=== PATIENT | female | born 1935 | race Caucasian/White ===

== ENCOUNTER 2023-11-08 11:07 | Emergency (ER) | payer OTHER, SELFPAY ==
[2023-11-08 11:11] VITALS: BP 178/91
--- NOTE | 2023-11-08 11:33 | ED.GENMED ---
History of Present Illness
General
Chief Complaint: Abdominal Symptoms
Source: patient
Exam Limitations: none
Time Seen by Provider: 11/08/23 11:15
Travel History
Have you had any contact with someone who has COVID-19?: No
Do you have any symptoms of coronavirus? Fever > 100 degrees, chills, cough, shortness of breath, sore throat, loss of taste or smell, muscle aches, or headache?: No
History of Present Illness
History of Present Illness:
88-year-old female with history of hypertension presents with intermittent issues of loose stool diarrhea and lower abdominal pain. Patient is accompanied by her daughter who provides majority of the history. She states the patient has had
intermittent dark stool and diarrhea over the past several months. She was recently diagnosed with a UTI and started on nitrofurantoin 2 days ago. She notes ongoing urinary frequency. No fevers. No chest pain or breath. There has been no
vomiting. No other complaints at this time
Past History
Past History
ED Past Medical History: CAD, HTN, Hypercholesterolemia and Other (Previous [place], hysterectomy, appendectomy, hypertension)
ED Past Surgical History: Gynecological
Social History
Tobacco: Non-smoker
Alcohol: Occasional
Family History
Family History: CAD
Phy Exam
Physical Exam
Physical Exam:
General: Well-appearing female no acute respiratory distress
HEENT: Normocephalic atraumatic
Heart: Regular rate and rhythm no murmur
Lungs: Clear to auscultation bilaterally no wheeze
Abdomen soft tender to the epigastric region no guarding rebound normal bowel sounds nondistended also tender to the lower abdomen bilaterally
Extremities: No cyanosis or edema
Skin: Warm no rash
Course
Orders/Labs/Results
Orders:
Orders
11/08/23 11:32
CT Abd/pelvis W Iv Cont Urgent
Comment:
Reason For Exam: abdominal pain
11/08/23 11:40
Complete Blood Count/With Diff Urgent
Comprehensive Metabolic Panel Urgent
Lipase Urgent
Urinalysis Reflex To Culture Urgent
Date Specimen was Collected: 11/08/23
Time Specimen was Collected: 11:37
Urine Microscopic Reflex Cult Urgent
Urine Culture Urgent
TRISHA Source: U
Specimen Description:
Date Specimen was Collected: 11/08/23
Time Specimen was Collected: 11:37
11/08/23 15:22
US Abdomen Complete/Upper Urgent
Comment:
Reason For Exam: RUQ pain
11/08/23 15:31
Calprotectin, Fecal [S] Urgent
Fat, Fecal Qualitative [S] Urgent
STOOL [C difficile Antigen & Toxins] Urgent
TRISHA Source: Feces/Stool
Specimen Description:
Stool Culture Urgent
TRISHA Source: Feces/Stool
Specimen Description:
Stool For WBC Urgent
TRISHA Source: Feces/Stool
Specimen Description:
Stool for Occult Blood Routine
Abnormal Lab Results
11/08/23
11:40
RBC 4.07 L 10^6/uL
(4.20-5.40)
MCH 31.9 H pg
(27.0-31.0)
Absolute Neuts (auto) 6.9 H 10^3/uL
(1.4-6.5)
Carbon Dioxide 20 L mmol/L
(22-30)
BUN 20 H mg/dl
(7-17)
Glucose 103 H mg/dl
(70-99)
Alkaline Phosphatase 136 H U/L
(38-126)
Leukocyte Esterase Rfl 1+ A
(Negative)
Urine WBC (Reflex) 40-50 A /HPF
(0-5)
Urine Bacteria (Reflex) Few A
(Negative)
11/08/23 11:40
11/08/23 11:40
Vital Signs
Initial and Last Documented VS:
Initial Vital Signs
Temp Pulse Resp BP Pulse Ox
97.6 F 97 16 178/91 100
11/08/23 11:11 11/08/23 11:11 11/08/23 11:11 11/08/23 11:11 11/08/23 11:11
Last Documented Vital Signs
Temp Pulse Resp BP Pulse Ox
98.1 F 82 18 160/75 98
11/08/23 16:23 11/08/23 16:23 11/08/23 16:23 11/08/23 16:23 11/08/23 16:23
MDM/Problems Addressed
Differential Diagnosis Includes:
Abdominal pain with dark stool and loose stool. Question possible GI bleeding versus viral illness. She also has lower abdominal pain with urinary symptoms. Consider ongoing urinary tract infection. Urinalysis pending will check labs. Given the
diffuse tenderness on exam will do CT scan.
*Critical Care Note
Total Time (30-74mins, 75-104mins- exclusive of procedures): Not Applicable
Update Note
Update Note:
Rectal exam performed with female ems coordinator in the room. Small external hemorrhoids nonthrombosed. Little stool in the rectum. Heme test was negative however they may be due to small sample size. Patient did have a pad in her underwear that had
dried stool that was black in color.
Labs reviewed without significant finding. Initial CT shows no acute finding. Reevaluated patient and patient's GI doctor was on the phone who I spoke with. They recommended stool studies and an ultrasound given the epigastric pain. Ultrasound
was ordered which is negative for acute finding. Unfortunately patient unable to provide stool specimen here. Patient has ongoing urinary symptoms. Will change her antibiotic from Macrobid to Omnicef twice a day. She will be advised to follow-up
with her GI team. Stable for discharge.
ED Attending Note
-
Portions of this chart may have been created with voice recognition software.� Occasional wrong word or��sound alike� substitutions may have occurred due to the inherent limitations of voice recognition software.
Discharge Plan
Departure
Patient Disposition: Home (Routine Discharge)
Date of Disposition: 11/08/23
Time of Disposition: 17:27
Patient with high blood pressure during this ER visit?: No
Discharge Problem:
Acute UTI
Instructions: Urinary Tract Infection, Adult (DC), Abdominal Pain
Prescriptions:
New
cefdinir 300 mg capsule
300 mg PO BID Qty: 14 0RF
No Action
omeprazole 40 MG capsule,delayed release(DR/EC)
40 mg PO DAILY
amlodipine 10 MG tablet
10 mg PO DAILY
oxybutynin chloride 10 MG tablet extended release 24hr
15 mg PO DAILY
rosuvastatin 10 MG tablet
10 mg PO QPM
lisinopril 20 MG tablet
20 mg PO DAILY Qty: 1
acetaminophen [Tylenol] 325 mg Tablet
650 mg PO Q4H PRN (Reason: pain)
Referrals:
Saji Ahumada, DO [Family Provider] -
Activity Restrictions/Additional Instructions:
Drink plenty fluids. Use antibiotic as directed. Stop the nitrofurantoin and start the Omnicef. This was called into your pharmacy. Please follow-up with your GI and family doctor.
Interventions
Interventions:
*Risk Screen - Suicide Last Done: 11/08/23 11:11
*General Assessment Last Done: 11/08/23 11:11
*Neglect/Abuse Screening Last Done: 11/08/23 11:11
AG-Cmsbfk-Qxgfegiloi Assessment Last Done: 11/08/23 16:16
[2023-11-08 11:53] LABS: Urine Albumin Negative (Neg - Trace); Urine Bilirubin Negative (Negative); Urine Character Clear (Clear); Urine Color Yellow; Urine Glucose Negative (Negative); Urine Ketone Negative (Negative); Urine Leukocyte 1+ (Negative); Urine Nitrite Negative (Negative); Urine Occult Blood Negative (Negative); Urine Urobilinogen Negative (Neg - 1+)
[2023-11-08 12:22] LABS: Urine Amorphous Seen; Urine Red Blood Cell 0-2 /HPF (0-2); Urine White Cell 40-50 /HPF (0-5)
[2023-11-08 12:23] LABS: Urine Bacteria Few (Negative)
[2023-11-08 12:42] LABS: % Basophils 0.3 % (0-2); % Eosinophils 0.4 % (0-6); % Immature Granulocytes 0.1 % (0-0.5); % Lymphocytes 24.1 % (20.5-51.1); % Neutrophils 70.1 % (42.2-75.2); Absolute Lymphocytes 2.4 10^3/uL (1.2-3.4); Absolute Monocytes 0.5 10^3/uL (0.1-0.6); Absolute Neutrophils 6.9 10^3/uL (1.4-6.5); Hematocrit 37.2 % (37.0-47.0); Mean Corp Hgb Conc. 34.9 g/dL (33.0-37.0); Mean Corpuscular Hgb 31.9 pg (27.0-31.0); Mean Corpuscular Volume 91.4 fL (81.0-99.0); Mean Platelet Volume 9.9 fL (7.4-10.4); Nucleated Red Blood Cells % 0 %; Platelet Count 187 10^3/uL (130-400); Red Blood Cell Count 4.07 10^6/uL (4.20-5.40); Red Cell Dist. Width 13.4 % (11.5-14.5); White Blood Cell Count 9.9 10^3/uL (4.8-10.8)
[2023-11-08 12:47] LABS: ALT (SGPT) 16 U/L (0-35); AST (SGOT) 30 U/L (14-36); Alkaline Phosphatase 136 U/L (38-126); Blood Urea Nitrogen 20 mg/dl (7-17); Calcium 9.6 mg/dl (8.4-10.2); Carbon Dioxide 20 mmol/L (22-30); Chloride 107 mmol/L (98-107); Glucose 103 mg/dl (70-99); Lipase 79 U/L (23-300); Potassium 4.6 mmol/L (3.5-5.1); Sodium 137 mmol/L (135-145); Total Bilirubin 0.6 mg/dl (0.2-1.3); Total Protein 7.5 g/dl (6.3-8.2); eGFR > 60.00
[2023-11-08 16:23] VITALS: BP 160/75
== END 2023-11-08 17:40 | disposition home or self-care (01) ==
LOC: EMR 11:07
PROVIDERS: Physician Assistant; EMERGENCY PHYSICIAN Emergency Medicine; FAMILY PHYSICIAN Family Medicine
DX: N39.0 Urinary tract infection, site not specified (principal); K64.4 Residual hemorrhoidal skin tags
CPT/HCPCS: 99285; 74177; 76700; 80053; 81003; 81015; 83690; 85025; 87086; Q9967

== ENCOUNTER 2024-01-07 02:29 | Inpatient (IN) | payer OTHER, SELFPAY ==
[2024-01-06 20:08] VITALS: BMI 24.1
[2024-01-06 20:09] VITALS: BP 186/100
[2024-01-06 20:54] LABS: Hematocrit 30.8 % (37.0-47.0); Hemoglobin 11.3 g/dL (12.0-16.0); Mean Corp Hgb Conc. 36.7 g/dL (33.0-37.0); Mean Corpuscular Hgb 30.6 pg (27.0-31.0); Mean Corpuscular Volume 83.5 fL (81.0-99.0); Mean Platelet Volume 9.6 fL (7.4-10.4); Platelet Count 217 10^3/uL (130-400); Red Blood Cell Count 3.69 10^6/uL (4.20-5.40); Red Cell Dist. Width 12.5 % (11.5-14.5); White Blood Cell Count 15.5 10^3/uL (4.8-10.8)
[2024-01-06 20:59] LABS: ALT (SGPT) 22 U/L (0-35); AST (SGOT) 43 U/L (14-36); Albumin 3.5 g/dl (3.5-5.0); Alkaline Phosphatase 162 U/L (38-126); Blood Urea Nitrogen 18 mg/dl (7-17); Calcium 9.2 mg/dl (8.4-10.2); Carbon Dioxide 18 mmol/L (22-30); Chloride 99 mmol/L (98-107); Glucose 139 mg/dl (70-99); Potassium 3.4 mmol/L (3.5-5.1); Sodium 132 mmol/L (135-145); Total Bilirubin 0.8 mg/dl (0.2-1.3); eGFR > 60.00
[2024-01-06 21:24] LABS: Absolute Neutrophils -Man Diff 13.1 10^3/uL (1.4-6.5); Atypical Lymphocytes 7 %; Band Neutrophils 0 % (0-3); Lymphocytes 3 % (20-51); Monocytes 5 % (2-9); Platelets Checked Yes; Segmented Neutrophils 85 % (42-75)
[2024-01-06 21:25] LABS: Normal RBC Morphology No; Ovalocytes 1+; Total Cells Counted 100
[2024-01-06] MEDS: TYLENOL 650 MG PO (23:29)
[2024-01-06 23:34] VITALS: BP 171/101
--- NOTE | 2024-01-06 23:36 | ED.GENMED ---
History of Present Illness
General
Chief Complaint: Cough
Source: patient
Exam Limitations: none
Time Seen by Provider: 01/06/24 23:19
Nursing documentation reviewed up to this point in time: agreed with
Travel History
Have you had any contact with someone who has COVID-19?: No
Do you have any symptoms of coronavirus? Fever > 100 degrees, chills, cough, shortness of breath, sore throat, loss of taste or smell, muscle aches, or headache?: No
History of Present Illness
History of Present Illness:
88-year-old female hypertension history non-smoker lives alone presents with cough fatigue decreased p.o. intake fever here not eating much due to sore throat to get a flu and a COVID shot
Past History
Past History
ED Past Medical History: CAD, HTN, Hypercholesterolemia and Other (Previous [place], hysterectomy, appendectomy, hypertension)
ED Past Surgical History: Gynecological
Social History
Tobacco: Non-smoker
Alcohol: None
Drug: None
Personal:
Living: alone
Employment: Retired
Family History
Family History: CAD
Review of Systems
Review of Systems
All Other Systems: Not applicable
Constitutional: Reports fever and fatigue
EENT: Reports sore throat
Respiratory: Reports cough and trouble breathing
Cardiac: Reports no symptoms
ABD/GI: Denies abdominal pain, nausea or vomiting
: Reports no symptoms
Musculoskeletal: Reports no symptoms
Skin: Reports no symptoms
Neurological: Reports weakness
Phy Exam
Physical Exam
Physical Exam:
Physical Exam
General: Elderly female coughing
Neck: Red throat
Heart: Tachycardic
Lungs: Rhonchi bilateral
Abdomen: Not tender
Neuro: alert and oriented. no focal neurological deficits
Skin: no rash
Psychiatric: well kept. interactive and cooperative
Extremities: no edema. no calf tenderness.
Course
Orders/Labs/Results
Orders:
Orders
01/06/24 20:31
Electrocardiogram (*1) Urgent
Reason for Study: Shortness of Breath
EKG- Treatment ONCE
01/06/24 20:39
CMP [Comprehensive Metabolic Panel] Urgent
Complete Blood Count/With Diff Urgent
Manual Differential Urgent
01/06/24 23:20
Acetaminophen [Tylenol] 650 mg PO NOW STA
01/06/24 23:32
0.9% Sodium Chloride 1000 ml [Nss] 1,000 ml IV BOLUS
Dexamethasone Sod Phosphate [Decadron] 10 mg IV NOW STA
Ipratropium/Albuterol Sulfate [Duoneb] 3 ml INH R NOW STA
01/06/24 23:39
COVID-19 Antigen Urgent
Source: Nasal Swab
Influenza A+B Rapid Molecular Urgent
TRISHA Source: Nasal Swab
Specimen Description:
01/07/24 00:00
CR Chest - 2 Views Urgent
Reason For Exam: SOB/HACKING COUGH
01/07/24 00:28
CefTRIAXone [Rocephin] 1,000 mg IV NOW STA
HydrALAZINE [Apresoline] 5 mg IV NOW STA
01/07/24 00:50
Benzonatate [Tessalon Perles] 200 mg PO NOW STA
Abnormal Lab Results
01/06/24
20:39
WBC 15.5 H 10^3/uL
(4.8-10.8)
RBC 3.69 L 10^6/uL
(4.20-5.40)
Hgb 11.3 L g/dL
(12.0-16.0)
Hct 30.8 L %
(37.0-47.0)
Abs Neuts (Manual) 13.1 H 10^3/uL
(1.4-6.5)
Segmented Neutrophils 85 H %
(42-75)
Lymphocytes (Manual) 3 L %
(20-51)
Sodium 132 L mmol/L
(135-145)
Potassium 3.4 L mmol/L
(3.5-5.1)
Carbon Dioxide 18 L mmol/L
(22-30)
BUN 18 H mg/dl
(7-17)
Glucose 139 H mg/dl
(70-99)
AST 43 H U/L
(14-36)
Alkaline Phosphatase 162 H U/L
(38-126)
Total Protein 6.0 L g/dl
(6.3-8.2)
01/06/24 20:39
01/06/24 20:39
Vital Signs
Initial and Last Documented VS:
Initial Vital Signs
Temp Pulse Resp BP Pulse Ox
101.1 F H 116 26 186/100 95
01/06/24 20:09 01/06/24 20:09 01/06/24 20:09 01/06/24 20:09 01/06/24 20:09
Last Documented Vital Signs
Temp Pulse Resp BP Pulse Ox
98.5 F 106 25 171/101 95
01/06/24 23:32 01/06/24 23:45 01/06/24 23:45 01/06/24 23:34 01/06/24 23:34
MDM/Problems Addressed
Differential Diagnosis Includes:
Influenza COVID pneumonia bronchitis
MDM/Problems Addressed:
Cough fever
Chronic conditions affecting care: HTN and CAD
Acute Exacerbation and/or Progression of Chronic Illness: HTN and CAD
*Radiology
Radiology exam reviewed: preliminary read by ED provider
*Pulse Oximetry
Patient hypoxic: no
*EKG
Interpretation: abnormal
Comparison EKG: no comparison EKG present
Heart Rate: 112
Rate: tachycardiac
Rhythm: sinus
Ischemia: non-specific ST changes
*Carpet Technician Interpretation
Rate: tachycardiac
Interpretation: abnormal
Heart Rate: 112
Rhythm: sinus
*Critical Care Note
Total Time (30-74mins, 75-104mins- exclusive of procedures): Not Applicable
Data Reviewed
Review of Other/Old Records Reveals: Labs
Source: patient
Update Note
Update Note:
12:30 AM chest x-ray noted looks like pneumonia formal report pending will start antibiotics blood pressure is creeping up we will give her some hydralazine see how she is responding to treatment may require inpatient management
12:50 AM patient still coughing , oxygen level dips down in the low 90s placed on oxygen, will admit
ED Attending Note
-
Portions of this chart may have been created with voice recognition software.� Occasional wrong word or��sound alike� substitutions may have occurred due to the inherent limitations of voice recognition software.
Discharge Plan
Departure
Patient Disposition: Admit
Date of Disposition: 01/07/24
Time of Disposition: 00:51
Admit to: Med/Surg
Presentation/result/management discussed w/ accepting MD/DO: Hospitalist
Patient with high blood pressure during this ER visit?: Yes
Condition: Fair
Covid-19: Negative COVID-19
Discharge Problem:
Pneumonia
Prescriptions:
No Action
omeprazole 40 MG capsule,delayed release(DR/EC)
40 mg PO DAILY
amlodipine 10 MG tablet
10 mg PO DAILY
oxybutynin chloride 10 MG tablet extended release 24hr
15 mg PO DAILY
rosuvastatin 10 MG tablet
10 mg PO QPM
lisinopril 20 MG tablet
20 mg PO DAILY Qty: 1
acetaminophen [Tylenol] 325 mg Tablet
650 mg PO Q4H PRN (Reason: pain)
cefdinir 300 mg capsule
300 mg PO BID Qty: 14 0RF
Referrals:
Saji Ahumada DO [Family Provider] -
Interventions
Interventions:
*Risk Screen - Suicide Last Done: 01/06/24 20:09
*Neglect/Abuse Screening Last Done: 01/06/24 20:09
Discharge Date and Time
Print Language: MALTESE
[2024-01-06] MEDS: NSS 1000 IV (23:37)
[2024-01-06] MEDS: DECADRON 10 MG IV (23:37)
[2024-01-06] MEDS: DUONEB 3 ML INH (23:37)
[2024-01-06 23:56] VITALS: BP 193/75
[2024-01-07] VITALS (11 sets, daily range): BP systolic 144–227; BP diastolic 50–190; PULSE 82–110; O2SAT 97; BMI 23.8
[2024-01-07 00:07] LABS: COVID-19 Antigen Negative (Negative)
[2024-01-07] MEDS: TESSALON PERLES 200 MG PO (00:57)
[2024-01-07] MEDS: APRESOLINE 5 MG IV (00:57)
[2024-01-07] MEDS: ROCEPHIN 1000 MG IV (00:57)
--- NOTE | 2024-01-07 02:19 | HPS.HSE ---
Family Physician
-
Family Physician: Saji Ahumada DO
Chief Complaint
-
Cough / Fatigue
History of Present Illness
Patient is an 88y F with PMH significant for ASCVD, hypertension and GERD who presents to ED complaining of cough, fatigue and poor appetite for one week. Her symptoms started Saturday one week ago and have persisted since that time. She reports
associated headache and sore throat. Cough is minimally productive. No bloody sputum. No fevers / chills. Patient denies any known sick contacts. She denies any associated GI symptoms.
Medical History
Past Medical History
Past Medical History: Reports Other
Additional Past Medical History:
ASCVD
Hypertension
Takotsubo's Cardiomyopathy
GERD
OAB
Lumbar DDD
Past Surgical History: Reports Other
Additional Past Surgical History:
Cervical Fusion
Lumbar Laminectomy
DIANA
Appendectomy
Finger Surgery
Social History
Tobacco: Non-smoker
Alcohol: None
Drug: None
Living: Alone
Family History
Family History: Not pertinent
Allergies / Home Medications
Allergies reflects when Allergies were last updated in [facility].
Home Medications with original date entered in [facility]
Allergy/Medication List:
Allergies
Allergy/AdvReac Type Severity Reaction Status Date / Time
No Known Allergies Allergy Verified 01/06/24 20:30
Home Medications
amlodipine 10 mg tablet 10 mg PO DAILY 10/17/16
omeprazole 40 mg capsule,delayed release 40 mg PO DAILY 10/17/16
rosuvastatin 10 mg tablet 10 mg PO QPM 12/07/18
lisinopril 20 mg tablet 20 mg PO DAILY ##1 12/10/18
acetaminophen 325 mg tablet (Tylenol) 650 mg PO Q4H PRN pain 02/28/23
aspirin 81 mg chewable tablet 81 mg PO DAILY 01/07/24
vibegron 75 mg tablet (Gemtesa) 75 mg PO DAILY 01/07/24
Review of Systems
-
History Source: Patient
A 12 point ROS was completed and negative except as noted: Yes
Constitutional: Reports Fatigue; Denies Fever or Chills
EENT: Reports Sore Throat
Respiratory: Reports Cough; Denies Trouble Breathing
Cardiac: Denies Chest Pain, Diaphoresis or Palpitations
Abdomen/GI: Denies Abdominal Pain, Nausea, Vomiting or Diarrhea
: Reports Frequency; Denies Dysuria
Musculoskeletal: Denies Joint Pain or Edema
Neurological: Reports Headache; Denies Dizzy
Psych: Denies Depression or Anxiety
Physical Exam
Vital Signs
Vital Signs
Temp Pulse Resp BP Pulse Ox
98.5 F 106 25 171/101 95
01/06/24 23:32 01/06/24 23:45 01/06/24 23:45 01/06/24 23:34 01/06/24 23:34
Physical Exam
General: Other (88y F in no acute distress.)
HEENT: Moist mucous membranes and PERRLA
Respiratory: Other (Rales over R lower lung hendricks. No wheezes.)
Cardiac: S1/S2, Regular Rhythm and Murmur (II/ TASIA)
GI: Soft, Non Tender, Non Distended and Normal Bowel Sounds
Musculoskeletal: No Clubbing, No Cyanosis and No Edema
Neuro: AO x 3
Laboratory Results
-
01/06/24 20:39
01/06/24 20:39
Laboratory Results
Total Bilirubin 0.8 mg/dl (0.2-1.3) 01/06/24 20:39
AST 43 U/L (14-36) H 01/06/24 20:39
ALT 22 U/L (0-35) 01/06/24 20:39
Alkaline Phosphatase 162 U/L (38-126) H 01/06/24 20:39
Impression/Plan
-
A/P: Patient is an 88y F with PMH significant for ASCVD and hypertension who presents to ED complaininig of cough, sore throat and fatigue x 1 week.
RLL Pneumonia
Sepsis secondary to the above
- Admit for further evaluation and treatment.
- Patient presents with cough, R base infiltrate on CXR and fever, leukocytosis and tachycardia.
- Abx with IV ceftriaxone and PO doxy.
- Supportive care including mucolytics, nebs, etc.
- Follow for clinical improvement.
- COVID / Influenza negative in the ED.
ASCVD
Takotsubo's Cardiomyopathy
- Stable. No chest pain, palpitations, edema, etc.
- Continue current CV med regimen and follow for any new complaints.
Benign Hypertension
- BP is uncontrolled in the ED.
- Continue usual outpatient meds.
- Hydralazine PRN for higher BPs
- Adjust regimen as needed for improved control.
GERD
- Stable. Continue daily PPI.
DVT prophylaxis: Lovenox
Code Status: DNR
[2024-01-07] MEDS: KLOR-CON 20 MEQ PO (03:45)
--- NOTE | 2024-01-07 05:32 | PTCARENOTE ---
Receive pt from ER. Pt alert oriented X3, in no distress. Pt assist X1 to her bed. Pt states that her legs feel weak. Pt oriented to the room, call within reach. PN=286/80, HR=98, T=97.9, SpO2=97% on RA. Pt can be forgetful at times. Bed alarm in
place for pt's safety. Will monitor the pt.
[2024-01-07 06:34] LABS: Hematocrit 29.6 % (37.0-47.0); Hemoglobin 10.6 g/dL (12.0-16.0); Mean Corp Hgb Conc. 35.8 g/dL (33.0-37.0); Mean Corpuscular Hgb 30.8 pg (27.0-31.0); Mean Platelet Volume 11.4 fL (7.4-10.4); Platelet Count 163 10^3/uL (130-400); Red Blood Cell Count 3.44 10^6/uL (4.20-5.40); Red Cell Dist. Width 12.6 % (11.5-14.5)
[2024-01-07 09:18] LABS: Blood Urea Nitrogen 16 mg/dl (7-17); Calcium 9.3 mg/dl (8.4-10.2); Carbon Dioxide 20 mmol/L (22-30); Chloride 102 mmol/L (98-107); Estimated Creatinine Clearance 50 ml/min; Glucose 176 mg/dl (70-99); Potassium 3.6 mmol/L (3.5-5.1); Sodium 134 mmol/L (135-145); eGFR > 60.00
[2024-01-07] MEDS: LOW STRENGTH ASPIRIN 81 MG PO (09:28)
[2024-01-07] MEDS: ZESTRIL 20 MG PO (09:28)
[2024-01-07] MEDS: FLUSH (NSS) 1 FLUSH IV (09:28)
[2024-01-07] MEDS: MUCINEX 600 MG PO ×2 (09:28→20:10)
[2024-01-07] MEDS: NORVASC 10 MG PO (09:28)
[2024-01-07] MEDS: VIBRAMYCIN 100 MG PO ×2 (09:28→20:11)
[2024-01-07] MEDS: PROTONIX 40 MG PO (09:28)
--- NOTE | 2024-01-07 10:32 | CM ---
CM met with Lexi and her son this morning. Assessment complete.
Lexi lives alone in a 2 story home. Her bedroom is on the second level, however if needed she would be able to stay on the first floor.
Lexi walks to [employer] most days and likes to be active.
Family lives locally and is very supportive; daughter and 3 sons visit almost daily.
Anticipate discharge to home with no needs besides continued family support.
PCP: Saji Ahumada; [facility]
Pharmacy: [facility] ([facility]
--- NOTE | 2024-01-07 12:55 | W.PN.HOSP.TC ---
Today's Communication/Plan
-
Monitor vital signs see plan
Continue with antibiotics
Blood cultures never drawn on admission, ordered this morning
Continue with amlodipine, lisinopril
PT/OT
Nonbillable note
Assessment / Plan
Assessment / Plan
General: Other (88y F in no acute distress.)
HEENT: Moist mucous membranes and PERRLA
Respiratory: Other (Rales over R lower lung hendricks. No wheezes.)
Cardiac: S1/S2, Regular Rhythm and Murmur (II/ TASIA)
GI: Soft, Non Tender, Non Distended and Normal Bowel Sounds
Musculoskeletal: No Clubbing, No Cyanosis and No Edema
Neuro: AO x 3
Bilateral pneumonia
Sepsis secondary to the above
No blood cultures were drawn on admission, blood culture drawn 01/06, monitor
- Patient presents with cough, R base infiltrate on CXR and fever, leukocytosis and tachycardia.
- Abx with IV ceftriaxone and PO doxy.
- Supportive care including mucolytics, nebs, etc.
- Follow for clinical improvement.
- COVID / Influenza negative in the ED.
ASCVD
Takotsubo's Cardiomyopathy
- Stable. No chest pain, palpitations, edema, etc.
- Continue current CV med regimen and follow for any new complaints
Mild hyponatremia
monitor
Benign Hypertension
cw amlodipine,lisinopril
- Hydralazine PRN for higher BPs
- Adjust regimen as needed for improved control.
GERD
- Stable. Continue daily PPI.
DVT prophylaxis: Lovenox
Code Status: DNR
Anticipated Discharge: > 48 hours
Subjective/Interval History
-
Date of Service: January 07, 2024
denies pain
Objective Data
-
Labs:
Laboratory Results
01/07/24 01/07/24
05: 08:01
WBC 15.0 H
Hgb 10.6 L
Hct 29.6 L
Plt Count 163 D
Sodium Cancelled 134 L
Potassium Cancelled 3.6
Chloride Cancelled 102
Carbon Dioxide Cancelled 20 L
BUN Cancelled 16
Creatinine Cancelled 0.6
Glucose Cancelled 176 H
Calcium Cancelled 9.3
Vital Signs:
Vital Signs
Temp Pulse Resp BP Pulse Ox
97.8 F 82 16 170/76 97
01/07/24 07:55 01/07/24 09:28 01/07/24 08:19 01/07/24 09:28 01/07/24 09:24
--- NOTE | 2024-01-07 16:29 | PTCARENOTE ---
Pt AAO x3, forgetful at times. JORGENSEN well, OOB to BR with assist x1; sl unsteady w/OOB activity, denies weakness/dizziness; stated 'I live by myself'. VSS. On room air- pulse ox 99%, no c/o SOB. Abd soft, rounded,jona PO well. Voiding in BR
without difficulty. Resting in chair at present, no c/o; family members at bedside. Will continue to monitor.
[2024-01-07] MEDS: CRESTOR 10 MG PO (18:25)
[2024-01-07] MEDS: LOVENOX 40 MG SC (18:25)
[2024-01-08] MEDS: STERILE WATER FOR INJECTION 10 ML IV ×2 (01:00→23:37)
[2024-01-08] MEDS: ROCEPHIN 1000 MG IV ×2 (01:01→23:37)
[2024-01-08] MEDS: TESSALON PERLES 100 MG PO ×2 (02:23→12:00)
[2024-01-08 04:24] VITALS: BP 157/97
--- NOTE | 2024-01-08 04:50 | PTCARENOTE ---
patient is having confused conversation, but oriented to person, place and time. Evan notified, awaiting POC. VSS . Patient placed on medsitter d/t attempting to climb out of bed to look for jewelry.
--- NOTE | 2024-01-08 05:09 | W.PN.UPDATE ---
Update Note
Progress Note Update
Patient with no known diagnosed history of Dementia, Per nursing patient seem more confused this AM, Reports per her daughter, patient has hx of forgetful and needs redirection. Will UA to see any growth. stable VS.
--- NOTE | 2024-01-08 06:20 | PTCARENOTE ---
urine cx ordered per Evan
[2024-01-08 07:35] LABS: % Basophils 0.3 % (0-2); % Immature Granulocytes 1.1 % (0-0.5); % Lymphocytes 18.8 % (20.5-51.1); % Monocytes 3.9 % (1.7-9.3); % Neutrophils 75.9 % (42.2-75.2); Absolute Basophils 0.1 10^3/uL (0-0.2); Absolute Immature Granulocytes 0.3 10^3/uL (0-0.05); Absolute Lymphocytes 4.8 10^3/uL (1.2-3.4); Absolute Neutrophils 19.4 10^3/uL (1.4-6.5); Hematocrit 32.4 % (37.0-47.0); Hemoglobin 11.6 g/dL (12.0-16.0); Mean Corp Hgb Conc. 35.8 g/dL (33.0-37.0); Mean Corpuscular Hgb 30.4 pg (27.0-31.0); Mean Platelet Volume 9.4 fL (7.4-10.4); Nucleated Red Blood Cells % 0 %; Platelet Count 289 10^3/uL (130-400); Red Blood Cell Count 3.81 10^6/uL (4.20-5.40); Red Cell Dist. Width 12.9 % (11.5-14.5); White Blood Cell Count 25.5 10^3/uL (4.8-10.8)
[2024-01-08 07:55] LABS: ALT (SGPT) 36 U/L (0-35); AST (SGOT) 64 U/L (14-36); Albumin 3.5 g/dl (3.5-5.0); Alkaline Phosphatase 169 U/L (38-126); Blood Urea Nitrogen 19 mg/dl (7-17); Calcium 9.8 mg/dl (8.4-10.2); Carbon Dioxide 19 mmol/L (22-30); Chloride 103 mmol/L (98-107); Estimated Creatinine Clearance 50 ml/min; Glucose 133 mg/dl (70-99); Potassium 3.6 mmol/L (3.5-5.1); Sodium 137 mmol/L (135-145); Total Bilirubin 0.5 mg/dl (0.2-1.3); Total Protein 6.1 g/dl (6.3-8.2); eGFR > 60.00
[2024-01-08 08:22] VITALS: BP 180/88
[2024-01-08] MEDS: VIBRAMYCIN 100 MG PO ×2 (08:31→19:46)
[2024-01-08] MEDS: MUCINEX 600 MG PO ×2 (08:32→19:46)
[2024-01-08] MEDS: NORVASC 10 MG PO (08:32)
[2024-01-08] MEDS: PROTONIX 40 MG PO (08:32)
[2024-01-08] MEDS: LOW STRENGTH ASPIRIN 81 MG PO (08:32)
[2024-01-08] MEDS: ZESTRIL 20 MG PO (08:32)
[2024-01-08] MEDS: APRESOLINE 5 MG IV (09:56)
[2024-01-08 10:41] LABS: Urine Albumin Trace (Neg - Trace); Urine Bilirubin Negative (Negative); Urine Character Clear (Clear); Urine Color Yellow; Urine Glucose Negative (Negative); Urine Ketone Negative (Negative); Urine Leukocyte Negative (Negative); Urine Nitrite Negative (Negative); Urine Occult Blood Trace (Negative); Urine Urobilinogen Negative (Neg - 1+)
[2024-01-08 11:00] VITALS: BP 132/67
[2024-01-08 11:35] LABS: Urine Hyaline Cast 0-2 /LPF (0-2); Urine Red Blood Cell 0-2 /HPF (0-2); Urine White Cell 0-2 /HPF (0-5)
--- NOTE | 2024-01-08 12:52 | W.PN.HOSP.TC ---
Today's Communication/Plan
-
monitor vitals
see plan
low dose seroquel
cw BP meds
monitor leukocytosis
speech eval
cw abx
check strep,legionella
Hold statin, monitor LFTs
Discussed with the daughter at bedside
Assessment / Plan
Assessment / Plan
General: Other (88y F in no acute distress.)
HEENT: Moist mucous membranes and PERRLA
Respiratory: Other (Rales over R lower lung hendricks. No wheezes.)
Cardiac: S1/S2, Regular Rhythm and Murmur (II/ TASIA)
GI: Soft, Non Tender, Non Distended and Normal Bowel Sounds
Musculoskeletal: No Clubbing, No Cyanosis and No Edema
Neuro: AO x 2-3
Bilateral pneumonia
Sepsis secondary to the above
No blood cultures were drawn on admission, blood culture drawn 01/06, monitor
- Patient presents with cough, R base infiltrate on CXR and fever, leukocytosis and tachycardia.
- Abx with IV ceftriaxone and PO doxy.
- Supportive care including mucolytics, nebs, etc.
- Follow for clinical improvement.
- COVID / Influenza negative in the ED.
speech to evaluate
ua without UTI
Check strep, Legionella
Change in mental status suspect secondary to acute delirium
Possible component of ing
Spoke with daughter, start low-dose Seroquel
Per daughter patient does appear to showing signs of cognitive impairment however no diagnosis of dementia established
ASCVD
Takotsubo's Cardiomyopathy
- Stable. No chest pain, palpitations, edema, etc.
- Continue current CV med regimen and follow for any new complaints
Mild hyponatremia
monitor
Benign Hypertension
cw amlodipine,lisinopril
- Hydralazine PRN for higher BPs
- Adjust regimen as needed for improved control.
Elevated LFT's
monitor
denies abdominal pain
hold statin
GERD
- Stable. Continue daily PPI.
DVT prophylaxis: Lovenox
Code Status: DNR
I spent a total of 52 minutes with the patient or on the floor. More than 50% of this time involved counseling and coordination of care.
Anticipated Discharge: 24 - 48 hours
Subjective/Interval History
-
Date of Service: January 08, 2024
denies pain
Objective Data
-
Labs:
Laboratory Results
01/08/24
07:01
WBC 25.5 H
Hgb 11.6 L
Hct 32.4 L
Plt Count 289 D
Sodium 137
Potassium 3.6
Chloride 103
Carbon Dioxide 19 L
BUN 19 H
Creatinine 0.6
Glucose 133 H
Calcium 9.8
Total Bilirubin 0.5
AST 64 H
ALT 36 H
Alkaline Phosphatase 169 H
Vital Signs:
Vital Signs
Temp Pulse Resp BP Pulse Ox
97.9 F 95 18 132/67 98
01/08/24 08:22 01/08/24 11:00 01/08/24 08:22 01/08/24 11:00 01/08/24 08:22
I&O
01/07/24 01/08/24 01/09/24
06:59 06:59 06:59
Intake Total 960 / 960
Balance 960 / 960
--- NOTE | 2024-01-08 13:32 | PTOTSP ---
SPEECH THERAPY SWALLOW EVALUATION:
Patient exhibits clinical signs of oropharyngeal dysphagia, likely acutely related to increased confusion, pneumonia, and sepsis in the setting of advanced age. Patient remains at risk for aspiration and related complications given significant
confusion, impulsivity, and distractibility, as well as tenuous pulmonary status with current pneumonia. Current pneumonia in Right Lower lobe, suspicious for aspiration-related infection. Recommend Videofluoroscopic Swallowing Study to further
assess swallow function at this time. Recommend diet downgrade to IDDSI Level 6 Soft and Bite Size, thin liquids until VSE. Medications whole with liquid. Aspiration precautions: 100% supervision with meals. Small bites/sips. Slow rate of intake;
HOB 90; Eat only when alert; Verbal cues for not talking while eating; Reduce distractions during meals. Speech therapy to follow, assess diet tolerance and modify as appropriate, and provide further recommendations following VSE.
RECOMMEND:
1) Videofluoroscopic Swallowing Study
2) diet downgrade to IDDSI Level 6 Soft and Bite Size, thin liquids
3) Medications whole with liquid
4) Aspiration precautions: 100% supervision with meals. Small bites/sips. Slow rate of intake; HOB 90; Eat only when alert; Verbal cues for not talking while eating; Reduce distractions during meals
5) Speech Therapy to follow
--- NOTE | 2024-01-08 15:21 | CM ---
I met with Lexi, her daughter Teresita, and her son Surya. Family is very supportive and they have a network of friends who are able to assist as well. We spoke about Lexi going home and the concern of her memory and possibility of elopement from
the home if she is left alone. Teresita has already made up one of the bedrooms so she (or another sibling) can stay overnight and feel that family will be vigilant regarding Lexi's memory issues and concern for getting lost in the community.
Because Lexi has lived in the same home for many, many years, there is 'an army' of neighbors who are willing to help as needed.
Lexi is to have a videofluoroscopic swallowing study to evaluate for dysphagia.
CM will continue to follow for discharge planning needs.
[2024-01-08 16:16] VITALS: BP 149/65
[2024-01-08] MEDS: RISPERDAL M-TAB (ORALLY DISINTEGRATING) 0.5 MG PO (16:25)
--- NOTE | 2024-01-08 16:45 | PTCARENOTE ---
Pt became agitated continually climbing out of chair/ bed with increased confusion restfulness, walking the halls refusing to go back into her room, yelling at staff, attempted redirection, reorientation and unsuccessful, Pt refusing to go back to
room. Spoke with MD orders for eloy chair/ Risperdal x1. Pt out at nurses station in eloy chair at this time. Family updated, plan of care continues.
[2024-01-08] MEDS: LOVENOX 40 MG SC (17:50)
[2024-01-08] MEDS: SEROQUEL 12.5 MG PO (21:01)
--- NOTE | 2024-01-08 23:07 | PTCARENOTE ---
Patient agitated, unable to follow direction, placed in eloy chair,
[2024-01-08 23:53] VITALS: BP 156/81
[2024-01-09] MEDS: TESSALON PERLES 100 MG PO (00:23)
[2024-01-09] MEDS: TYLENOL 650 MG PO (00:23)
[2024-01-09 07:53] LABS: ALT (SGPT) 36 U/L (0-35); AST (SGOT) 48 U/L (14-36); Alkaline Phosphatase 133 U/L (38-126); Blood Urea Nitrogen 17 mg/dl (7-17); Calcium 9.2 mg/dl (8.4-10.2); Carbon Dioxide 20 mmol/L (22-30); Chloride 101 mmol/L (98-107); Estimated Creatinine Clearance 43 ml/min; Glucose 89 mg/dl (70-99); Potassium 3.5 mmol/L (3.5-5.1); Sodium 133 mmol/L (135-145); Total Bilirubin 0.4 mg/dl (0.2-1.3); Total Protein 5.3 g/dl (6.3-8.2); eGFR > 60.00
[2024-01-09 08:03] LABS: % Basophils 0.2 % (0-2); % Eosinophils 0.1 % (0-6); % Immature Granulocytes 0.5 % (0-0.5); % Lymphocytes 43.2 % (20.5-51.1); % Monocytes 6.1 % (1.7-9.3); % Neutrophils 49.9 % (42.2-75.2); Absolute Immature Granulocytes 0.1 10^3/uL (0-0.05); Absolute Lymphocytes 5.3 10^3/uL (1.2-3.4); Absolute Monocytes 0.7 10^3/uL (0.1-0.6); Absolute Neutrophils 6.1 10^3/uL (1.4-6.5); Hemoglobin 10.3 g/dL (12.0-16.0); Mean Corp Hgb Conc. 35.5 g/dL (33.0-37.0); Mean Corpuscular Hgb 30.4 pg (27.0-31.0); Mean Corpuscular Volume 85.5 fL (81.0-99.0); Mean Platelet Volume 9.4 fL (7.4-10.4); Nucleated Red Blood Cells % 0 %; Platelet Count 270 10^3/uL (130-400); Red Blood Cell Count 3.39 10^6/uL (4.20-5.40); White Blood Cell Count 12.2 10^3/uL (4.8-10.8)
[2024-01-09 08:05] VITALS: BP 165/85
[2024-01-09] MEDS: VIBRAMYCIN 100 MG PO ×2 (08:51→20:04)
[2024-01-09] MEDS: PROTONIX 40 MG PO (08:51)
[2024-01-09] MEDS: NORVASC 10 MG PO (08:51)
[2024-01-09] MEDS: ZESTRIL 20 MG PO ×2 (08:51→13:36)
[2024-01-09] MEDS: MUCINEX 600 MG PO ×2 (08:51→20:04)
[2024-01-09] MEDS: LOW STRENGTH ASPIRIN 81 MG PO (08:51)
[2024-01-09] MEDS: FLUSH (NSS) 1 FLUSH IV (08:52)
[2024-01-09 10:57] VITALS: BP 119/56; PULSE 85; O2SAT 98
--- NOTE | 2024-01-09 11:25 | CM ---
Lexi has been more confused, requiring a lot of redirection. She had her video swallow completed this morning and family is interested in learning the results.
Plan: Discharge to home with family and 11/03 supervision. Resources provided for non-medical home care/aid services. Family appreciative.
--- NOTE | 2024-01-09 11:35 | PTOTSP ---
Addendum entered and electronically signed by ST Terry 01/09/24 13:44:
Addendum: Met with family at the bedside to discuss results/recommendations from video swallow study. Patient's daughter requested advancement to regular solids and thin liquids as she reported patient refusing to eat certain food due to dislike
of texture modifications. Family will select soft/moist foods from the menu. Discussed with MD. As education completed with family, no further dysphagia therapy warranted. Please reconsult as appropriate.
Original Note:
Video Swallow Examination
Summary: Patient presents with mild oral/ pharyngeal stage of swallowing. No aspiration occurred. Deep transient penetration was noted with consecutive drinking of thin liquids via cup due to delay in swallow onset/incomplete epiglottic
inversion. Gagging noted with mildly thick via tsp x1. Please see patient care note for full details of penetration and swallowing physiology.
Recommend:
1. L6 Soft/Bite Sized, L0 Thin
2. Supervision given AMS this admission
3. Medications whole in puree
4. Strategies: single sips, reflux precautions
5. Brief dysphagia f/u for patient/family education, instruction in compensations.
--- NOTE | 2024-01-09 13:19 | W.PN.HOSP.TC ---
Addendum entered and electronically signed by Kiran Steele MD 01/09/24 13:43:
Family does not want modified diet. Family will choose soft and moist diet. speech now recommending change to regular. Will continue to monitor
Original Note:
Today's Communication/Plan
-
Monitor vital signs closely plan
Continue with antibiotics
Monitor mental status, continue Seroquel
Monitor LFTs
Increase lisinopril to 40 mg
Daughter updated at bedside
Assessment / Plan
Assessment / Plan
General: Other (88y F in no acute distress.)
HEENT: Moist mucous membranes and PERRLA
Respiratory: Other (Rales over R lower lung hendricks. No wheezes.)
Cardiac: S1/S2, Regular Rhythm and Murmur (II/ TASIA)
GI: Soft, Non Tender, Non Distended and Normal Bowel Sounds
Musculoskeletal: No Clubbing, No Cyanosis and No Edema
Neuro: AO x 2-3
Bilateral pneumonia
Sepsis secondary to the above
No blood cultures were drawn on admission, blood culture drawn 01/06, monitor
- Patient presents with cough, R base infiltrate on CXR and fever, leukocytosis and tachycardia.
- Abx with IV ceftriaxone and PO doxy.
- Supportive care including mucolytics, nebs, etc.
- Follow for clinical improvement.
- COVID / Influenza negative in the ED.
speech following; VSE noted 01/07. cw soft and bite-size per speech recommendation
ua without UTI
Check strep, Legionella neg
Change in mental status suspect secondary to acute delirium
slowly improving;calm this morning
Possible component of
Spoke with daughter, start low-dose Seroquel
Per daughter patient does appear to showing signs of cognitive impairment however no diagnosis of dementia established
ASCVD
Takotsubo's Cardiomyopathy
- Stable. No chest pain, palpitations, edema, etc.
- Continue current CV med regimen and follow for any new complaints
Mild hyponatremia
monitor
Benign Hypertension
cw amlodipine,lisinopril; increase lisinopril to 40mg
- Hydralazine PRN for higher BPs
- Adjust regimen as needed for improved control.
Elevated LFT's
monitor
denies abdominal pain
hold statin
GERD
- Stable. Continue daily PPI.
DVT prophylaxis: Lovenox
Code Status: DNR
I spent a total of 51 minutes with the patient or on the floor. More than 50% of this time involved counseling and coordination of care.
Anticipated Discharge: 24 - 48 hours
Subjective/Interval History
-
Date of Service: January 09, 2024
calm this morning
Objective Data
-
Labs:
Laboratory Results
01/09/24
06:41
WBC 12.2 H
Hgb 10.3 L
Hct 29.0 L
Plt Count 270
Sodium 133 L
Potassium 3.5
Chloride 101
Carbon Dioxide 20 L
BUN 17
Creatinine 0.7
Glucose 89
Calcium 9.2
Total Bilirubin 0.4
AST 48 H
ALT 36 H
Alkaline Phosphatase 133 H
Vital Signs:
Vital Signs
Temp Pulse Resp BP Pulse Ox
97.5 F 98 16 165/85 97
01/09/24 08:05 01/09/24 08:51 01/09/24 08:05 01/09/24 08:51 01/09/24 08:47
I&O
01/08/24 01/09/24 01/10/24
06:59 06:59 06:59
Intake Total 960 / 960 580 / 580
Balance 960 / 960 580 / 580
[2024-01-09 15:52] VITALS: BP 150/68
--- NOTE | 2024-01-09 15:54 | PTCARENOTE ---
Pt awake and alert, oriented to self/place/birthdate; occ to month/day; very forgetful; conversation confused. Pt cooperative so far this shift, Medsitter monitor in place. Pt JORGENSEN well, OOB to BR with assist x1/walker,; sl unsteady w/OOB activity;
denies weakness/dizziness. VSS. On room air- pulse ox 95%, no c/o SOB. Abd soft, rounded, jona IDDi 6 diet- appetite poor, pt does not like consistency of foods; pt to be started on reg diet. No dysphagia noted. Voids in BR; occ incont small
amts at times. Resting in bed at present, no c/o. Will continue to monitor.
[2024-01-09] MEDS: LOVENOX 40 MG SC (17:54)
[2024-01-09] MEDS: SEROQUEL 12.5 MG PO (21:17)
[2024-01-09] MEDS: STERILE WATER FOR INJECTION 10 ML IV (23:21)
[2024-01-09] MEDS: ROCEPHIN 1000 MG IV (23:21)
[2024-01-09 23:43] VITALS: BP 125/58
[2024-01-10 04:58] VITALS: BMI 23.5
[2024-01-10 07:16] LABS: Hematocrit 29.9 % (37.0-47.0); Hemoglobin 10.6 g/dL (12.0-16.0); Mean Corp Hgb Conc. 35.5 g/dL (33.0-37.0); Mean Corpuscular Hgb 30.4 pg (27.0-31.0); Mean Corpuscular Volume 85.7 fL (81.0-99.0); Mean Platelet Volume 9.2 fL (7.4-10.4); Platelet Count 269 10^3/uL (130-400); Red Blood Cell Count 3.49 10^6/uL (4.20-5.40); Red Cell Dist. Width 13.1 % (11.5-14.5); White Blood Cell Count 9.8 10^3/uL (4.8-10.8)
[2024-01-10 07:39] LABS: ALT (SGPT) 32 U/L (0-35); AST (SGOT) 30 U/L (14-36); Alkaline Phosphatase 130 U/L (38-126); Blood Urea Nitrogen 14 mg/dl (7-17); Calcium 9.1 mg/dl (8.4-10.2); Carbon Dioxide 22 mmol/L (22-30); Chloride 106 mmol/L (98-107); Estimated Creatinine Clearance 43 ml/min; Glucose 96 mg/dl (70-99); Potassium 3.3 mmol/L (3.5-5.1); Sodium 137 mmol/L (135-145); Total Bilirubin 0.3 mg/dl (0.2-1.3); Total Protein 5.4 g/dl (6.3-8.2); eGFR > 60.00
[2024-01-10 07:55] VITALS: BP 155/71
[2024-01-10 08:44] LABS: Lymphocytes 44 % (20-51); Monocytes 4 % (2-9); Segmented Neutrophils 41 % (42-75)
[2024-01-10 08:45] LABS: Atypical Lymphocytes 11 %; Normal RBC Morphology Yes; Platelets Checked Yes; Total Cells Counted 100
[2024-01-10] MEDS: ZESTRIL 40 MG PO (09:19)
[2024-01-10] MEDS: MUCINEX 600 MG PO ×2 (09:19→21:31)
[2024-01-10] MEDS: LOW STRENGTH ASPIRIN 81 MG PO (09:19)
[2024-01-10] MEDS: VIBRAMYCIN 100 MG PO ×2 (09:19→21:31)
[2024-01-10] MEDS: PROTONIX 40 MG PO (09:19)
[2024-01-10] MEDS: NORVASC 10 MG PO (09:19)
[2024-01-10] MEDS: FLUSH (NSS) 1 FLUSH IV (09:21)
[2024-01-10] MEDS: KCL 20 MEQ PO (09:24)
[2024-01-10] MEDS: TYLENOL 650 MG PO (09:31)
--- NOTE | 2024-01-10 12:06 | W.PN.HOSP.TC ---
Today's Communication/Plan
-
Monitor vital signs
See plan
Continue monitor mental status, appears to be slowly improving
Continue antibiotics
Replete potassium
Continue with amlodipine, lisinopril
Discussed with daughter at bedside
Assessment / Plan
Assessment / Plan
General: Other (88y F in no acute distress.)
HEENT: Moist mucous membranes and PERRLA
Respiratory: Other (Rales over R lower lung hendricks. No wheezes.)
Cardiac: S1/S2, Regular Rhythm and Murmur (II/ TASIA)
GI: Soft, Non Tender, Non Distended and Normal Bowel Sounds
Musculoskeletal: No Clubbing, No Cyanosis and No Edema
Neuro: AO x 2-3
Bilateral pneumonia
Sepsis secondary to the above
No blood cultures were drawn on admission, blood culture drawn 01/06, monitor
- Patient presents with cough, R base infiltrate on CXR and fever, leukocytosis and tachycardia.
- Abx with IV ceftriaxone and PO doxy.
- Supportive care including mucolytics, nebs, etc.
- Follow for clinical improvement.
- COVID / Influenza negative in the ED.
speech following; VSE noted 01/07. cw soft and bite-size per speech recommendation
ua without UTI
Check strep, Legionella neg
Change in mental status suspect secondary to acute delirium
slowly improving;calm this morning
Possible component of
Spoke with daughter, start low-dose Seroquel
Per daughter patient does appear to showing signs of cognitive impairment however no diagnosis of dementia established
ASCVD
Takotsubo's Cardiomyopathy
- Stable. No chest pain, palpitations, edema, etc.
- Continue current CV med regimen and follow for any new complaints
Mild hyponatremia
Resolved
Hypokalemia
Replete
Benign Hypertension
cw amlodipine,lisinopril; increase lisinopril to 40mg
- Hydralazine PRN for higher BPs
- Adjust regimen as needed for improved control.
Elevated LFT's
monitor
denies abdominal pain
hold statin
GERD
- Stable. Continue daily PPI.
DVT prophylaxis: Lovenox
Code Status: DNR
Anticipated Discharge: Within 24 hours
Subjective/Interval History
-
Date of Service: January 10, 2024
denies pain
Objective Data
-
Labs:
Laboratory Results
01/10/24
06:47
WBC 9.8
Hgb 10.6 L
Hct 29.9 L
Plt Count 269
Sodium 137
Potassium 3.3 L
Chloride 106
Carbon Dioxide 22
BUN 14
Creatinine 0.7
Glucose 96
Calcium 9.1
Total Bilirubin 0.3
AST 30
ALT 32
Alkaline Phosphatase 130 H
Vital Signs:
Vital Signs
Temp Pulse Resp BP Pulse Ox
98.0 F 81 20 155/71 96
01/10/24 07:55 01/10/24 07:55 01/10/24 07:55 01/10/24 09:19 01/10/24 07:55
I&O
01/09/24 01/10/24 01/11/24
06:59 06:59 06:59
Intake Total 580 / 580 790 / 790
Balance 580 / 580 790 / 790
[2024-01-10 12:39] LABS: Glucose - Point of Care 161 mg/dl (70-99)
--- NOTE | 2024-01-10 13:39 | CM ---
Lexi's mentation is slowly improving. Plan for discharge to home with family assistance/supervision. Lexi's mentation is slowly improving.
Anticipate discharge in the next day; no services necessary at this time, however family is aware of potential supports though [employer] and also have a list of private home health agencies if needed.
No additional needs identified at this time.
[2024-01-10 15:55] VITALS: BP 162/76
[2024-01-10] MEDS: LOVENOX 40 MG SC (18:09)
[2024-01-10] MEDS: SEROQUEL 12.5 MG PO (21:31)
[2024-01-10] MEDS: STERILE WATER FOR INJECTION 10 ML IV (23:16)
[2024-01-10] MEDS: ROCEPHIN 1000 MG IV (23:16)
[2024-01-10 23:45] VITALS: BP 131/84
[2024-01-11 07:00] VITALS: BP 110/72
[2024-01-11 07:18] LABS: % Basophils 0.2 % (0-2); % Eosinophils 0.7 % (0-6); % Immature Granulocytes 0.9 % (0-0.5); % Lymphocytes 53.7 % (20.5-51.1); % Monocytes 4.4 % (1.7-9.3); % Neutrophils 40.1 % (42.2-75.2); Absolute Eosinophils 0.1 10^3/uL (0-0.7); Absolute Immature Granulocytes 0.1 10^3/uL (0-0.05); Absolute Lymphocytes 5.1 10^3/uL (1.2-3.4); Absolute Monocytes 0.4 10^3/uL (0.1-0.6); Absolute Neutrophils 3.8 10^3/uL (1.4-6.5); Hematocrit 30.2 % (37.0-47.0); Hemoglobin 10.5 g/dL (12.0-16.0); Mean Corp Hgb Conc. 34.8 g/dL (33.0-37.0); Mean Corpuscular Hgb 30.2 pg (27.0-31.0); Mean Corpuscular Volume 86.8 fL (81.0-99.0); Mean Platelet Volume 9.5 fL (7.4-10.4); Nucleated Red Blood Cells % 0 %; Platelet Count 295 10^3/uL (130-400); Red Blood Cell Count 3.48 10^6/uL (4.20-5.40); Red Cell Dist. Width 13.2 % (11.5-14.5); White Blood Cell Count 9.5 10^3/uL (4.8-10.8)
[2024-01-11 07:46] LABS: ALT (SGPT) 32 U/L (0-35); AST (SGOT) 31 U/L (14-36); Albumin 2.9 g/dl (3.5-5.0); Alkaline Phosphatase 120 U/L (38-126); Blood Urea Nitrogen 14 mg/dl (7-17); Carbon Dioxide 23 mmol/L (22-30); Chloride 107 mmol/L (98-107); Estimated Creatinine Clearance 43 ml/min; Glucose 99 mg/dl (70-99); Potassium 3.9 mmol/L (3.5-5.1); Sodium 139 mmol/L (135-145); Total Bilirubin 0.3 mg/dl (0.2-1.3); Total Protein 5.3 g/dl (6.3-8.2); eGFR > 60.00
[2024-01-11] MEDS: LOW STRENGTH ASPIRIN 81 MG PO (09:35)
[2024-01-11] MEDS: VIBRAMYCIN 100 MG PO (09:35)
[2024-01-11] MEDS: NORVASC 10 MG PO (09:35)
[2024-01-11] MEDS: MUCINEX 600 MG PO (09:35)
[2024-01-11] MEDS: PROTONIX 40 MG PO (09:35)
[2024-01-11] MEDS: ZESTRIL 40 MG PO (09:36)
--- NOTE | 2024-01-11 11:03 | CM ---
Patient seen at bedside with patient daughter Teresita. Patient for possible discharge home. Patient daughter requesting VN; [facility]. Physician made aware and referral to be ordered. CM will send referral to [facility] at patient daughter request. Patient
daughter to provide transportation and IMM completed. CM will continue to follow for discharge planning needs.
Plan; referral to [facility]
--- NOTE | 2024-01-11 11:22 | W.PN.HOSP.TC ---
Today's Communication/Plan
-
monitor vitals
see plan
dc today
change abx to PO
discussed with daughter at bedside
time of discharge 38 minutes
Assessment / Plan
Assessment / Plan
General: Other (88y F in no acute distress.)
HEENT: Moist mucous membranes and PERRLA
Respiratory: Other (Rales over R lower lung hendricks. No wheezes.)
Cardiac: S1/S2, Regular Rhythm and Murmur (II/ TASIA)
GI: Soft, Non Tender, Non Distended and Normal Bowel Sounds
Musculoskeletal: No Clubbing, No Cyanosis and No Edema
Neuro: AO x 2-3
Bilateral pneumonia
Sepsis secondary to the above
No blood cultures were drawn on admission, blood culture drawn 01/06 NGTD, monitor
Now symptoms improving
change abx to PO
- Supportive care including mucolytics, nebs, etc.
- Follow for clinical improvement.
- COVID / Influenza negative in the ED.
speech following; VSE noted 01/07. cw soft and bite-size per speech recommendation
ua without UTI
Check strep, Legionella neg
Change in mental status suspect secondary to acute delirium
slowly improving;calm this morning
Possible component of
Spoke with daughter, start low-dose Seroquel
Per daughter patient does appear to showing signs of cognitive impairment however no diagnosis of dementia established
ASCVD
Takotsubo's Cardiomyopathy
- Stable. No chest pain, palpitations, edema, etc.
- Continue current CV med regimen and follow for any new complaints
Mild hyponatremia
Resolved
Hypokalemia
Resolved
Benign Hypertension
cw amlodipine,lisinopril; increase lisinopril to 40mg
- Hydralazine PRN for higher BPs
- Adjust regimen as needed for improved control.
Elevated LFT's
monitor
denies abdominal pain
hold statin
GERD
- Stable. Continue daily PPI.
DVT prophylaxis: Lovenox
Code Status: DNR
Anticipated Discharge: Today
Subjective/Interval History
-
Date of Service: January 11, 2024
denies pain
Objective Data
-
Labs:
Laboratory Results
01/11/24
06:14
WBC 9.5
Hgb 10.5 L
Hct 30.2 L
Plt Count 295
Sodium 139
Potassium 3.9
Chloride 107
Carbon Dioxide 23
BUN 14
Creatinine 0.7
Glucose 99
Calcium 9.0
Total Bilirubin 0.3
AST 31
ALT 32
Alkaline Phosphatase 120
Vital Signs:
Vital Signs
Temp Pulse Resp BP Pulse Ox
98.4 F 84 16 110/72 96
01/11/24 07:00 01/11/24 07:00 01/11/24 07:00 01/11/24 09:36 01/11/24 07:00
I&O
01/10/24 01/11/24 01/12/24
06:59 06:59 06:59
Intake Total 790 / 790 1080 / 1080
Balance 790 / 790 1080 / 1080
--- NOTE | 2024-01-11 11:33 | W.DCSUMMARY ---
Discharge Summary
Discharge Data
Date of Admission: 01/07/24
Date of Discharge: 01/11/24
-
Pending Results: No
Hospital Course
88-year-old female with past medical history of Takotsubo cardiomyopathy, GERD, essential hypertension, cognitive impairment came to the hospital with sepsis secondary to bilateral pneumonia. Patient was initially treated with IV antibiotic which
was later transitioned to oral prior to discharge. Patient was also seen by speech therapy and got video swallow study. She was able to tolerate regular diet per speech recommendations. Her hospital course was complicated with change in mental
status which was thought was secondary to acute delirium and sundowning. Her mental status continue to improve on low-dose Seroquel. She was able to come back to her baseline mental status prior to the discharge. Per physical therapy
recommendation she was recommended SNF however patient and daughter both decided to rather go home. Her blood pressure was also uncontrolled so her lisinopril was increased. Once her symptoms continue to improve and her mental status was back to
baseline, she was then discharged home with instructions to follow-up with all her physicians outpatient.
Discharge Plan
-
Patient Disposition: Home (Routine Discharge)
Discharge Diagnosis/Procedures: Bilateral pneumonia
Acute delirium
Sundowning
Essential HTN
Condition: Fair
Diet: As tolerated
Activity: As tolerated
Driving Restrictions: No driving
Bathing Restrictions: None
Referrals:
Saji Ahumada DO [Family Provider] - in less than 1 week
Prescriptions:
New
quetiapine 25 mg Tablet
12.5 mg PO HS Qty: 30 0RF
doxycycline hyclate 100 mg Capsule
100 mg PO Q12 Qty: 10 0RF
lisinopril 20 mg Tablet
40 mg PO DAILY Qty: 60 0RF
benzonatate 100 mg Capsule
100 mg PO TIDPRN PRN (Reason: Cough) Qty: 14 0RF
guaifenesin 600 mg Tablet Extended Release 12hr
600 mg PO Q12 Qty: 14 0RF
cefdinir 300 mg capsule
300 mg PO BID Qty: 10 0RF
Continued
omeprazole 40 MG capsule,delayed release(DR/EC)
40 mg PO DAILY
amlodipine 10 MG tablet
10 mg PO DAILY
rosuvastatin 10 MG tablet
10 mg PO QPM
lisinopril 20 MG tablet
20 mg PO DAILY Qty: 1
acetaminophen [Tylenol] 325 mg Tablet
650 mg PO Q4H PRN (Reason: pain)
aspirin 81 mg Tablet,Chewable
81 mg PO DAILY
Gemtesa 75 mg Tablet
75 mg PO DAILY
Discharge Orders:
Discharge Patient (As Directed); Ordered 01/11/24
Ordered By: Kiran Steele
Discharge Date and Time
Discharge Date/Time: 01/11/24 13:03
Print Language: LAO
[2024-01-11 11:54] VITALS: BP 167/79
== END 2024-01-11 13:03 | disposition home health service (06) | DRG 871 ==
LOC: 4 EAST ACU 02:29
PROVIDERS: Emergency Medicine; Nurse Practitioner Gerontology; ADMITTING PHYSICIAN Hospitalist; ATTENDING PHYSICIAN Internal Medicine; EMERGENCY PHYSICIAN Emergency Medicine; FAMILY PHYSICIAN Family Medicine
DX: A41.9 Sepsis, unspecified organism (principal); J18.9 Pneumonia, unspecified organism; I51.81 Takotsubo syndrome; E87.1 Hypo-osmolality and hyponatremia; F05 Delirium due to known physiological condition; I10 Essential (primary) hypertension; E78.00 Pure hypercholesterolemia, unspecified; I25.10 Atherosclerotic heart disease of native coronary artery without angina pectoris; R41.89 Other symptoms and signs involving cognitive functions and awareness; E87.6 Hypokalemia; K21.9 Gastro-esophageal reflux disease without esophagitis; N32.81 Overactive bladder; M51.36 Other intervertebral disc degeneration, lumbar region; Z66 Do not resuscitate; Z60.2 Problems related to living alone; I25.2 Old myocardial infarction; Z79.82 Long term (current) use of aspirin; Z11.52 Encounter for screening for COVID-19
CPT/HCPCS: 71046; 74230; 80048; 80053; 81003; 81015; 82962; 85025; 85027; 87040; 87449; 87502; 87811; 87899; 92610; 92611; 93005; 94640; 94667; 96361; 96374; 96375; 97116; 97163; 97166; 97535; 99285

== ENCOUNTER 2025-05-30 14:59 | Inpatient (IN) | payer OTHER, SELFPAY ==
[2025-05-30] VITALS (9 sets, daily range): BP systolic 121–202; BP diastolic 54–176; BMI 25.3; BMI 25.2
[2025-05-30 09:41] LABS: Hematocrit 36.2 % (37.0-47.0); Hemoglobin 13.4 g/dL (12.0-16.0); Mean Corp Hgb Conc. 37.0 g/dL (33.0-37.0); Mean Corpuscular Volume 91.6 fL (81.0-99.0); Platelet Count 190 10^3/uL (130-400); Red Cell Dist. Width 16.0 % (11.5-14.5)
[2025-05-30 09:42] LABS: ALT (SGPT) 20 U/L (0-35); AST (SGOT) 32 U/L (14-36); Albumin 5.3 g/dl (3.5-5.0); Alkaline Phosphatase 124 U/L (38-126); Blood Urea Nitrogen 18 mg/dl (7-17); Calcium 9.8 mg/dl (8.4-10.2); Carbon Dioxide 22 mmol/L (22-30); Chloride 105 mmol/L (98-107); Estimated Creatinine Clearance 47 ml/min; Glucose 167 mg/dl (70-99); Magnesium 1.8 mg/dl (1.6-2.3); Potassium 4.5 mmol/L (3.5-5.1); Sodium 138 mmol/L (135-145); Total Protein 7.9 g/dl (6.3-8.2); eGFR > 60.00
[2025-05-30 09:53] LABS: Troponin I < 0.012 ng/ml
[2025-05-30 10:24] LABS: Nucleated Red Blood Cells % 0 %
--- NOTE | 2025-05-30 10:33 | EDRN ---
Dr. Jacques currently at the [facility] bedside
[2025-05-30] MEDS: MORPHINE SULFATE 4 MG IV (10:37)
--- NOTE | 2025-05-30 10:37 | ED.GENMED ---
History of Present Illness
General
Chief Complaint: Fall
Time Seen by Provider: 05/30/25 10:34
History of Present Illness
History of Present Illness:
See MDM
Past History
Past History
ED Past Medical History: CAD, HTN, Hypercholesterolemia and Other (Previous [place], hysterectomy, appendectomy, hypertension)
ED Past Surgical History: Gynecological
Social History
Tobacco: Non-smoker
Alcohol: None
Drug: None
Personal:
Living: alone
Employment: Retired
Family History
Family History: CAD
Phy Exam
Physical Exam
Physical Exam:
See MDM
Course
Orders/Labs/Results
Orders:
Orders
05/30/25 09:10
Electrocardiogram (*1) Urgent
Reason for Study: Fatigue / Weakness
CT Cervical Spine W/o Iv Contr Urgent
Comment:
Reason For Exam: fall with head strike
CT Head W/o Iv Contrast Urgent
Comment:
Reason For Exam: fall with head strike
05/30/25 09:11
EKG- Treatment ONCE
05/30/25 09:21
Complete Blood Count/With Diff Urgent
Comprehensive Metabolic Panel Urgent
Creatine Phosphokinase Urgent
Magnesium Urgent
Troponin I Urgent
05/30/25 10:16
CR Hips JEZ w/wo Pel Min 5 Vw* Urgent
Reason For Exam: b/l hip pain
Include a pelvis x-ray?: Yes
05/30/25 10:34
Morphine Sulfate 4 mg IV NOW STA
05/30/25 14:24
Consult Orthopedic [ORTHOPEDIC CONSULT] Routine
Consulting Provider: Judy Dover I.
Was physician already notified: Yes
05/30/25 14:31
CT Pelvis W/o Iv Contrast Urgent
Comment:
Reason For Exam: left hip pain
Abnormal Lab Results
05/30/25
09:21
WBC 12.6 H 10^3/uL
(4.8-10.8)
RBC 3.95 L 10^6/uL
(4.20-5.40)
Hct 36.2 L %
(37.0-47.0)
MCH 33.9 H pg
(27.0-31.0)
RDW 16.0 H %
(11.5-14.5)
Absolute Neuts (auto) 9.6 H 10^3/uL
(1.4-6.5)
Neutrophils % 76.1 H %
(42.2-75.2)
Lymphocytes % 19.4 L %
(20.5-51.1)
BUN 18 H mg/dl
(7-17)
Glucose 167 H mg/dl
(70-99)
Creatine Kinase 171 H U/L
(30-135)
Albumin 5.3 H g/dl
(3.5-5.0)
05/30/25 09:21
05/30/25 09:21
Vital Signs
Initial and Last Documented VS:
Initial Vital Signs
Temp Pulse Resp BP Pulse Ox
98.0 F 106 20 182/92 97
05/30/25 09:04 05/30/25 09:04 05/30/25 09:04 05/30/25 09:04 05/30/25 09:04
Last Documented Vital Signs
Temp Pulse Resp BP Pulse Ox
97.5 F 82 20 179/76 93
05/30/25 12:53 05/30/25 12:53 05/30/25 12:53 05/30/25 12:53 05/30/25 14:15
MDM/Problems Addressed
Differential Diagnosis Includes:
Note:
CHIEF COMPLAINT(S)
Fall with subsequent thigh pain and inability to urinate.
HISTORY OF PRESENT ILLNESS
The patient is an 89-year-old female who experienced a fall leading to multiple bruises and pain in the thigh area. Pain on the thigh was localized during the physical examination and the patient expressed discomfort in a specific area when
palpated. The patient has been on the floor approximately four to five hours prior to arrival, which raised concern for possible muscle breakdown, however, blood work indicated no significant issues. The fall was discovered when the patients family
member arrived to pick her up for [employer], and upon checking, found her unresponsive since the previous night. The patient also reported feeling the need to urinate but was unable to do so.
ADDITIONAL HISTORY OBTAINED FROM SOURCE OTHER THAN THE PATIENT
The family member reports that they discovered the patient when they arrived to pick her up for [employer]. They became concerned when the patient did not answer calls after one hour and returned to find her on the floor.
PHYSICAL EXAM
General: Alert, no acute distress.
Skin: Warm, dry.
Head: Normocephalic, atraumatic
Neck: Appears supple, trachea midline.
Eyes, Ears, Nose, Mouth, and Throat: Moist mucous membranes
Cardiovascular: No signs of cyanosis
Respiratory: Respirations are non-labored.
Abdomen: Non-distended
Musculoskeletal: No deformities. Mild tenderness to palpation of bilateral hips
Neurological: No focal neurological deficit observed.
Psychiatric: Cooperative, appropriate mood and affect.
PLAN
1. Obtain X-ray of the pelvis and hip to assess for any fractures or significant injury.
2. Administer four milligrams of morphine for pain management.
3. Conduct a computed tomography (CT) scan to evaluate the head and neck for any potential injury due to the fall.
4. Monitor the patient for ability to urinate post-pain management and imaging studies; consider further evaluation if the inability persists.
DIFFERENTIAL DIAGNOSIS
The Differential Diagnosis includes, in no particular order and is not limited to:
1. Hip fracture
2. Pelvic fracture
3. Muscle strain
4. Urinary retention
5. Soft tissue injury
6. Subdural hematoma
7. Intracranial hemorrhage
8. Urinary tract infection
9. Lumbar spine injury
10. Neurogenic bladder due to acute injury
EKG
My independent EKG interpretation is:
- Time of EKG is not specified.
- Rhythm: Sinus rhythm.
- Heart rate: 99 beats per minute.
- Notable observations: Occasional premature ventricular contractions (PVCs).
- [place]: Normal.
- ST segment: No ST elevation noted.
05/30/25 - 11:22
CT head and neck results showed no acute abnormalities, allowing for the removal of the cervical collar. Notably, a thyroid nodule was identified, and an outpatient follow-up for further evaluation of the nodule was recommended.
SUMMARY OF ENCOUNTER
The patient, an 89-year-old female, was brought into the emergency department after a fall resulting in thigh pain and the inability to urinate. She was found unresponsive on the floor four to five hours after the fall. During the examination, the
patient had localized pain in the thigh area, and an inability to urinate, leading to concerns about muscle breakdown. However, blood work showed no significant issues. An X-ray of the hip indicated a possible subcapital fracture on the left.
Orthopedics recommended a CT scan for better visualization of the fracture. Pain management with morphine was administered in the ED.
DISPOSITION
Admit to the hospitalist service for pain control and orthopedic evaluation and fixation.
ASSESSMENT
The patient is likely experiencing a subcapital hip fracture with associated acute pain and urinary retention possibly due to pain and trauma.
EMERGENCY TREATMENTS ADMINISTERED
Morphine for pain management.
MANAGEMENT OF THE PATIENTS CARE WAS DISCUSSED WITH
Orthopedics was consulted regarding the hip fracture and the need for further imaging and evaluation.
PLAN
1. Obtain CT scan to better visualize the hip fracture.
2. Admit for pain management and orthopedic evaluation.
3. Monitor ability to urinate post-pain management.
4. Outpatient follow-up for further evaluation of the identified thyroid nodule.
INDEPENDENT REVIEW OF LABS AND INTERPRETATION OF TESTS
My independent interpretation of the hip X-ray is concerning for a subcapital fracture on the left.
FOLLOW-UP INSTRUCTIONS
Further thyroid nodule evaluation on an outpatient basis.
MEDICATION RECONCILIATION
1. Morphine administered for pain management.
MEDICAL DECISION MAKING
- Complexity of Data Reviewed: Chronic conditions affecting care.
DDx: Hip fracture, pelvic fracture, muscle strain, urinary retention, soft tissue injury, subdural hematoma, intracranial hemorrhage, urinary tract infection, lumbar spine injury, neurogenic bladder due to acute injury.
- Data:
Category 1:
My independent review of the hip X-ray suggests a left subcapital fracture.
Category 3:
Discussion of management occurred with orthopedics regarding further imaging and evaluation of the suspected fracture.
-Risk:
Prescription medication was prescribed. Morphine was administered for acute pain management. Given the complexity and risk of the patients presenting complaint, we considered admission for further management.
DIAGNOSIS
1. Subcapital fracture of the left femur (ICD-10: S72.002A).
2. Acute pain due to fracture (ICD-10: G89.11).
*Pulse Oximetry
SaO2: 98
Oxygen Mode of Delivery: Room air
Patient hypoxic: no
*Critical Care Note
Total Time (30-74mins, 75-104mins- exclusive of procedures): Not Applicable
ED Attending Note
-
Portions of this chart may have been created with voice recognition software.� Occasional wrong word or��sound alike� substitutions may have occurred due to the inherent limitations of voice recognition software.
Discharge Plan
Departure
Patient Disposition: Admit
Date of Disposition: 05/30/25
Time of Disposition: 14:35
Admit to: Med/Surg
Presentation/result/management discussed w/ accepting MD/DO: Hospitalist
Discharge Problem:
Thyroid nodule, Closed fracture of left hip
Prescriptions:
No Action
omeprazole 40 MG capsule,delayed release(DR/EC)
40 mg PO DAILY
rosuvastatin 10 MG tablet
10 mg PO QPM
acetaminophen [Tylenol] 325 mg Tablet
650 mg PO Q4H PRN (Reason: pain)
aspirin 81 mg Tablet,Chewable
81 mg PO DAILY
Gemtesa 75 mg Tablet
75 mg PO DAILY
quetiapine 25 mg Tablet
12.5 mg PO HS Qty: 30 0RF
lisinopril 20 mg Tablet
40 mg PO DAILY Qty: 60 0RF
benzonatate 100 mg Capsule
100 mg PO TIDPRN PRN (Reason: Cough) Qty: 14 0RF
guaifenesin 600 mg Tablet Extended Release 12hr
600 mg PO Q12 Qty: 14 0RF
Referrals:
Saji Ahumada PA-C [Family Provider, Emergency]
Interventions
Interventions:
*Risk Screen - Suicide Last Done: 05/30/25 09:04
*General Assessment Last Done: 05/30/25 09:04
*Neglect/Abuse Screening Last Done: 05/30/25 09:04
*ED- Fall Risk Assessment Last Done: 05/30/25 09:04
*ED COVID-19 Vaccine History Last Done: 05/30/25 09:04
*ED Influenza Vaccine History Last Done: 05/30/25 09:04
ED-Musculoskeletal Assessment Last Done: 05/30/25 09:04
ED- Neurological Assessment Last Done: 05/30/25 09:04
ED-Skin Assessment Last Done: 05/30/25 09:04
Discharge Date and Time
Print Language: KINYARWANDA
--- NOTE | 2025-05-30 14:19 | EDRN ---
Dr. Jacques currently at the [facility] bedside
--- NOTE | 2025-05-30 14:36 | HPS.HSE ---
Family Physician
-
Family Physician: Saji Ahumada PA-C
Chief Complaint
-
fall and Lt hip pain
History of Present Illness
HPI
89F HX ASCVD, Takotsubo's CM, HTN, Cx fusion. Lx laminectomy [facility] EMS:
daughter called 911 due to Fall around 3 am
- fell OOB - but did not recal the event
+ head stike
- was still on the floor when EMS arrived
- was HTN en route - non adherence to Lisnopril
Medical History
Past Medical History
Past Medical History: Reports Other
Additional Past Medical History:
ASCVD
Hypertension
Takotsubo's Cardiomyopathy
GERD
OAB
Lumbar DDD
Past Surgical History: Reports Other
Additional Past Surgical History:
Cervical Fusion
Lumbar Laminectomy
DIANA
Appendectomy
Finger Surgery
Social History
Tobacco: Non-smoker
Alcohol: None
Drug: None
Living: Alone
Family History
Family History: Not pertinent
Allergies / Home Medications
Allergies reflects when Allergies were last updated in [employer].
Home Medications with original date entered in [employer]
Allergy/Medication List:
Allergies
Allergy/AdvReac Type Severity Reaction Status Date / Time
No Known Allergies Allergy Verified 01/06/24 20:30
Home Medications
amlodipine 10 mg tablet 10 mg PO DAILY 10/17/16
omeprazole 40 mg capsule,delayed release 40 mg PO DAILY 10/17/16
rosuvastatin 10 mg tablet 10 mg PO QPM 12/07/18
lisinopril 20 mg tablet 20 mg PO DAILY ##1 12/10/18
acetaminophen 325 mg tablet (Tylenol) 650 mg PO Q4H PRN pain 02/28/23
aspirin 81 mg chewable tablet 81 mg PO DAILY 01/07/24
vibegron 75 mg tablet (Gemtesa) 75 mg PO DAILY 01/07/24
Review of Systems
-
Constitutional: Reports No Symptoms
EENT: Reports No Symptoms
Respiratory: Reports No Symptoms
Cardiac: Reports No Symptoms
Abdomen/GI: Reports No Symptoms
: Reports No Symptoms
Musculoskeletal: Reports See HPI
Skin: Reports No Symptoms
Neurological: Reports No Symptoms
Endocrine: Reports No Symptoms
Hematologic/Lymphatic: Reports No Symptoms
Psych: Reports No Symptoms
Physical Exam
Vital Signs
Vital Signs
Temp Pulse Resp BP Pulse Ox
97.5 F 82 20 179/76 93
05/30/25 12:53 05/30/25 12:53 05/30/25 12:53 05/30/25 12:53 05/30/25 14:15
Physical Exam
General: No Apparent Distress
HEENT: Other (Old streak of blood on the Lt eyebrow )
Respiratory: Clear
Cardiac: S1/S2 and Regular Rhythm
GI: Soft and Non Tender
Genito-urinary: Deferred by me
Musculoskeletal: No Edema, Left Lower Extremity
Neuro: Awake, Alert, Oriented and AO x 3
Psych: Calm and Intact Judgment/Insight
Laboratory Results
-
05/30/25 09:21
05/30/25 09:21
Laboratory Results
Total Bilirubin 1.3 mg/dl (0.2-1.3) 05/30/25 09:21
AST 32 U/L (14-36) 05/30/25 09:21
ALT 20 U/L (0-35) 05/30/25 09:21
Alkaline Phosphatase 124 U/L (38-126) 05/30/25 09:21
Troponin I < 0.012 ng/ml 05/30/25 09:21
Data Reviewed
-
CT Scan: Other (pending CT pelvis )
Lab Data: Labs Reviewed by me
Old Records: Reviewed
Impression/Plan
-
05/30/25
09:21
WBC 12.6 H
Hgb 13.4
Plt Count 190
Creatinine 0.6
eGFR > 60.00
Lt Hip XR
Acute subcapital left hip fracture.
HCT
1. No acute intracranial abnormality noted.
2. No acute fracture or subluxation of the cervical spine. Multilevel degenerative changes of the cervical spine.
3. Large right thyroid lobe nodule. Recommend outpatient workup with dedicated thyroid ultrasound if not previously performed.
Last hospitalist admission: 01/07/24 - 01/11/24
DC DXS:
Bilateral pneumonia
Acute delirium
Essential HTN
ASSESSMENT & PLAN
Pending Rx reconciliation
Acute subcapital left hip fracture s/p fall
- NEG HCT
- unremarkable CPK.
- Fx set protocol : PRN analgesia, PRN antiemetics, IVF , NPO after MN
- Hold ASA
- Pending CT pelvis
- Ortho consulted - awaiting CT pelvis report
Known HX
HX Bilateral pneumonia complcicated by sepsis ad TME
ASCVD
HX Takotsubo's Cardiomyopathy - No Cest pain, palpitations, edema: Continue current CV med regimen and follow for any new complaints
Benign Hypertension: on amlodipine,lisinopril
DLP : statin
Medically acceptable to proceed for OR; Benefits of ortho procedure outweigh periop complication
DVT Px: SCD
Full code
IP MS
--- NOTE | 2025-05-30 15:30 | EDRN ---
this RN called the receiving unit and notified them that paper report was going to be tubed up
[2025-05-30] MEDS: MORPHINE SULFATE 2 MG IV ×2 (16:20→20:35)
--- NOTE | 2025-05-30 16:28 | CM ---
Patient seen at bedside in [address] [place] [address]. Patient daughter stated that her mother lives in a two story home with her son. Patient is on Palliative care thru [facility] and familt plan is for patient to return to her home with daughter- who is a personal
corporate sales trainer for rehab and a bed on the first floor. Patient does not have DME but the home has railings and is set up for someone who has orthopedic needs per daughter. Patient uses the [facility] in [place] and her PCP is dr. Ahumada. Patient
may benefit from VN/PT/OT at home pending medical treatment recommendations. CM will continue to follow for discharge planning needs.
Plan; home with VN pending medical treatment plan
--- NOTE | 2025-05-30 17:07 | PTCARENOTE ---
Pt arrived to 2S via stretcher, slid to bed with assistance from NSG staff. Pt with c/o to left hip, prn morphine provided. Pt instructed on bedrest/ NWB status, verbalized understanding. Abrasion with surrounding bruising noted to L eyebrow, dried
blood cleansed. Pt with decreased movement to LLE, neurovascular assessment otherwise WDL. Static air overlay provided. Bed locked and in the lowest position, safety maintained. Oriented to room, daughter at bedside.
[2025-05-30] MEDS: ZOFRAN 4 MG IV (19:40)
--- NOTE | 2025-05-30 19:55 | CON.ORTHO ---
Consultation
-
Date/Time Consultation Requested: 05/30/2025 1224
Date/Time Consultation Performed: 05/30/2025 1900
Requesting Provider: Dr. Seymour Jacques
Performing Provider: MASOUD Lacy
Reason for Consultation: Left hip fracture
Consultation - Orthopedics
History
89-year-old female presenting to [facility] emergency room after mechanical fall earlier the morning and found by family. She was brought via EMS to [facility] and after imaging and CT scan she was diagnosed with a left femoral neck fracture.
Denies any chronic or prodromal symptoms. Reports pain acutely localized about the hip without any paresthesias. Denies any other injury sustained. Community ambulator at baseline without assistive devices and lives independently at home.
Allergies / Home Medications
Past History
ED Past Medical History: CAD, HTN, Hypercholesterolemia and Other (Previous CT, hysterectomy, appendectomy, hypertension)
ED Past Surgical History: Gynecological
Social History
Tobacco: Non-smoker
Alcohol: None
Drug: None
Personal:
Living: alone
Employment: Retired
Family History
Family History: CAD
Allergy/AdvReac Type Severity Reaction Status Date / Time
No Known Allergies Allergy Verified 01/06/24 20:30
�Medication �Instructions �Recorded
omeprazole 40 mg capsule,delayed 40 mg PO DAILY Gastrointestinal 10/17/16
release Issue
acetaminophen 325 mg tablet 650 mg PO HS MILD PAIN 02/28/23
(Tylenol)
vibegron 75 mg tablet (Gemtesa) 75 mg PO DAILY Overactive bladder 01/07/24
amlodipine 5 mg tablet (Norvasc) 5 mg PO DAILY 05/30/25
calcium citrate 200 mg PO DAILY 05/30/25
cholecalciferol (vitamin D3) 25 25 mcg PO DAILY 05/30/25
mcg (1,000 unit) tablet (Vitamin
D3)
lisinopril 20 mg tablet 20 mg PO DAILY Blood Pressure 05/30/25
loperamide 2 mg tablet 2 mg PO DAILYPRN PRN DIARRHEA 05/30/25
peg 400-propylene glycol (PF) 0.4 1 drp ophthalmic (eye) DAILY 05/30/25
%-0.3 % eye drops in a dropperette
(Systane (PF))
therapeutic multivitamin 1 tab PO DAILY 05/30/25
vitamin B complex 1 tab PO DAILY 05/30/25
Vital Signs / Lab Results
Temp Pulse Resp BP Pulse Ox
98.0 F 100 16 154/92 96
05/30/25 16:23 05/30/25 16:23 05/30/25 16:23 05/30/25 16:23 05/30/25 19:15
PHYSICAL EXAM: Examination of the left lower extremity shows skin is intact with no erythema edema or ecchymosis. Gentle logroll is discomfort of the left hip. Skin is intact. No swelling or ecchymosis about the knee or joints distally.
Neurovasc intact L3-S1
IMAGING: X-ray as well as a CT scan taken the pelvis and left hip show an impacted and mildly displaced left femoral neck fracture. Baseline advanced lumbar arthrosis. No significant femoral acetabular osteoarthrosis
05/30/25 09:21
05/30/25 09:21
Assessment / Plan
89-year-old female DOI 30 May 2025 left minimally displaced impacted left femoral neck fracture
Discussed with the patient as well as relative family members the significance of hip fractures there is an increased morbidity and mortality associated with these and they are significant injuries; reviewed that a portion of patient's return
towards ambulatory baseline status, another subset of patients are decreased when activity level, and other subset of patients pass away relative to comorbid conditions and decreased ambulatory status. Discussed it is recommended for majority of
patients to undergo operative intervention for optimal outcomes so that they may have an increased ambulatory status. She is at baseline a community ambulator without assist devices recommended for operative invention.
Images were shown and discussed with the patient regarding their injury. The injury and respective operative and nonoperative interventions reviewed with the patient and respective family members to include the risks and benefits rehabilitation and
prognosis for each. The treatment and operative technique, postoperative follow-up, postoperative rehabilitation and surgical prognosis was reviewed in detail. After thorough discussion of potential treatment options the patient and respective
family members wish to proceed with operative intervention for left hip arthroplasty.
No barriers to OR identified this time pending space time and availability.
Pending definitive timing as stated above; in the interim nonweightbearing to left lower extremity
DVT PPx per primary recommend short acting such as heparin if needed versus SCDs
Pain per primary
Diet per primary
It was further discussed with the patient that the injury sustained is considered a fragility fracture which occurs in the setting of osteoporosis. Discussed with the patient the significance of this as there is an increased risk of further
fragility fractures in the future. Recommend when discharged and in the nearby future for a follow-up with her primary care provider and discussion of management of osteoporosis and mitigating fall risk is much as possible in the future.
[2025-05-30] MEDS: SEROQUEL 12.5 MG PO (21:00)
[2025-05-30] MEDS: TYLENOL 650 MG PO (22:55)
[2025-05-31] VITALS (9 sets, daily range): BP systolic 107–163; BP diastolic 48–92
[2025-05-31 07:56] LABS: Hematocrit 29.7 % (37.0-47.0); Hemoglobin 11.0 g/dL (12.0-16.0); Mean Corp Hgb Conc. 37.0 g/dL (33.0-37.0); Mean Corpuscular Volume 93.7 fL (81.0-99.0); Platelet Count 174 10^3/uL (130-400); Red Cell Dist. Width 17.1 % (11.5-14.5)
[2025-05-31 07:57] LABS: ALT (SGPT) 17 U/L (0-35); AST (SGOT) 31 U/L (14-36); Albumin 4.2 g/dl (3.5-5.0); Alkaline Phosphatase 95 U/L (38-126); Blood Urea Nitrogen 31 mg/dl (7-17); Calcium 9.2 mg/dl (8.4-10.2); Carbon Dioxide 22 mmol/L (22-30); Chloride 105 mmol/L (98-107); Estimated Creatinine Clearance 19 ml/min; Glucose 87 mg/dl (70-99); Potassium 4.5 mmol/L (3.5-5.1); Sodium 136 mmol/L (135-145); Total Protein 6.5 g/dl (6.3-8.2); eGFR 33.31
[2025-05-31 09:28] LABS: Absolute Neutrophils -Man Diff 4.2 10^3/uL (1.4-6.5); Anisocytosis Slight; Normal RBC Morphology No; Ovalocytes Slight; Platelets Checked Yes; Total Cells Counted 100
--- NOTE | 2025-05-31 09:50 | W.PN.UPDATE ---
Update Note
Progress Note Update
Very lengthy bedside discussion with the patient and her daughter, Teresita Esparza (POA). we discussed surgical options at length. Given her fracture is nondisplaced and minimally impacted, a strong case can be made for a cannulated screw fixation
(versus hemiarthroplasty which was brought up with me by the patient's daughter). We discussed all the RBAs of each form of management, including failure of the fixation and need for a prosthesis in the future. we discussed the postop and rehab
course as well, including PWB status on a walker until we are happy with fracture consolidation. Her daughter, Teresita, had a lot of pertinent and insightful questions. I will have Dr. Dover reach out to her to discuss further, but she is
tentatively in agreement with a cannulated screw fixation of her mother's left hip, approaching less invasively a this time, which obviously carries less risk overall intra and post-operatively. surgical and blood consents have been signed and
placed to the patient's chart. Operative site has been marked as the LEFT hip. She will remain NPO. T&S ordered. plan for the OR a bit later today (~1630) under the direction of Dr. Dover. Remain in bed rest for now. Will follow
--- NOTE | 2025-05-31 10:04 | CM ---
Chart reviewed. Admitted after a mechanical fall. Found to have a left femoral neck fracture. Ortho consulted
Pt and daughter agreeable to a cannulated screw fixation of right hip. Plan for OR later today
Patient may benefit from PT/OT following surgery when able
Plan: CM will cont to follow for d/c needs
[2025-05-31] MEDS: NORVASC 5 MG PO (10:09)
[2025-05-31] MEDS: ZESTRIL 40 MG PO (10:09)
[2025-05-31] MEDS: PROTONIX 40 MG PO (10:09)
[2025-05-31] MEDS: MORPHINE SULFATE 4 MG IV ×2 (10:12→16:37)
--- NOTE | 2025-05-31 13:54 | W.PN.HOSP.TC ---
Today's Communication/Plan
-
Assessment / Plan
Assessment / Plan
NAD
Scleral Anicteric
MMM
No JVD
CTABL
RRR, S1/S2
Soft, NT, ND, BS+
Warm, Dry
Left leg rotated
AAOx3
Calm
Acute subcapital left hip fracture s/p fall
Ortho plan for OR later today
N.p.o.
Ready deemed acceptable risk by admitting provider
IV fluids
Analgesics
Hypertension
Continue antihypertensive
Hyperlipidemia
Continue statin
GERD continue PPI
Vitamin B12 deficiency
Continue supplementation
Anticipated Discharge: 24 - 48 hours
Subjective/Interval History
-
Date of Service: May 31, 2025
Seen and examined. Daughter at bedside. No new complaints. No acute overnight events.
Continues to have back pain which is chronic and baseline.
Objective Data
-
Labs:
Laboratory Results
05/31/25
06:16
WBC 11.8 H
Hgb 11.0 L
Hct 29.7 L
Plt Count 174
Sodium 136
Potassium 4.5
Chloride 105
Carbon Dioxide 22
BUN 31 H
Creatinine 1.5 H
Glucose 87
Calcium 9.2
Total Bilirubin 1.5 H
AST 31
ALT 17
Alkaline Phosphatase 95
Vital Signs:
Vital Signs
Temp Pulse Resp BP Pulse Ox
98 F 80 18 163/75 94
05/31/25 07:05 05/31/25 07:05 05/31/25 07:05 05/31/25 07:05 05/31/25 07:05
I&O
10/12/25 10/13/25 10/14/25
06:59 06:59 06:59
Intake Total 750 / 750
Output Total 53 / 53
Balance 697 / 697
[2025-05-31] MEDS: SEROQUEL 12.5 MG PO (21:19)
[2025-06-01 03:25] VITALS: BP 131/56
[2025-06-01] MEDS: MORPHINE SULFATE 2 MG IV ×2 (06:20→12:05)
[2025-06-01 07:15] VITALS: BP 182/80
--- NOTE | 2025-06-01 07:31 | W.PN.UPDATE ---
Update Note
Progress Note Update
Ms. Potter is POD1 following her left hip cannulated screw fixation for femoral neck fracture performed by Dr. Dover. She is resting comfortably in bed this morning and only endorses mild aching in the hip.
Directed exam of the left lower extremity reveals surgical dressing clean, dry and intact. Mild tenderness about the anterior hip. Thigh soft and compressible. Calf soft and nontender. Patient able to wiggle toes, plantar and dorsiflex ankle. NVID.
Hgb pending this AM.
89 yo F POD1 left hip cannulated screw fixation by Dr. Dover
--Partial weight bearing with walker. We appreciate the assistance of PT/OT.
--Recommend ASA 325 mg daily x4 weeks for DVT ppx, otherwise per primary.
--Pain control prn. Ice and elevation for pain and edema control.
--Hgb pending this AM. Continue to monitor.
--Maintain surgical dressing until 7-10 days post-op. Staple removal at 2 weeks post-op.
--Case management consult for dc planning.
--Orthopedics will continue to follow along.
[2025-06-01 07:59] LABS: ALT (SGPT) 17 U/L (0-35); AST (SGOT) 29 U/L (14-36); Albumin 4.4 g/dl (3.5-5.0); Alkaline Phosphatase 105 U/L (38-126); Blood Urea Nitrogen 42 mg/dl (7-17); Calcium 9.0 mg/dl (8.4-10.2); Carbon Dioxide 22 mmol/L (22-30); Chloride 103 mmol/L (98-107); Estimated Creatinine Clearance 19 ml/min; Glucose 111 mg/dl (70-99); Potassium 4.8 mmol/L (3.5-5.1); Sodium 136 mmol/L (135-145); Total Protein 6.6 g/dl (6.3-8.2); eGFR 33.31
[2025-06-01 09:10] LABS: Hematocrit 31.2 % (37.0-47.0); Hemoglobin 11.7 g/dL (12.0-16.0); Mean Corp Hgb Conc. 37.5 g/dL (33.0-37.0); Mean Corpuscular Volume 96.6 fL (81.0-99.0); Nucleated Red Blood Cells % 0 %; Platelet Count 200 10^3/uL (130-400); Red Cell Dist. Width 17.8 % (11.5-14.5)
--- NOTE | 2025-06-01 09:18 | PN.CDI ---
CDI
- -
CDI:
Physician Documentation Request
Admit Date: 05/30/25 14:59
Dear Doctor Alok,
Clinical Indicators:
Patient admitted with acute subcapital left hip fracture; s/p left hip cannulated screw fixation 05/31.
Cr/GFR trend:
05/30/25 05/31/25
09:21 06:16
Creatinine 0.6 1.5 H
eGFR > 60.00 33.31
Please clarify which of the following accurately represents the patient's renal status:
FLORENCE
Rise in creatinine only
Other, please specify
Criteria for FLORENCE*
1 Increase in serum creatinine by > or = to 0.3 mg/dL (> or = to 26.5 micromol/L) within 48 hours, OR
2 Increase in serum creatinine to > or = to 1.5 times baseline, which is known or presumed to have occurred within 7 days, OR
3 Urine volume < 0.5 nL/kg/hour for six hours
Use of terms such as suspected, likely, concern for, or probable (associated with a specific diagnosis that is being evaluated, monitored, or treated as if it exists) are acceptable and can be coded in the inpatient setting, when documented at the
time of discharge.
Thank you,
ZHANE Delarosa RN
CDI Specialist
available via tiger text
Please use your independent medical judgment in providing your response.
*Source: Kidney Disease: Improving Global Outcomes (KDIGO) 2012
--- NOTE | 2025-06-01 09:24 | PN.CDI ---
CDI
- -
CDI:
Physician Documentation Request
Admit Date: 05/30/25 14:59
Dear Doctor Alok,
Clinical Indicators:
Patient admitted with acute subcapital left hip fracture; s/p left hip cannulated screw fixation 05/31.
05/30 Orthopedic consult, '...the injury sustained is considered a fragility fracture which occurs in the setting of osteoporosis.'
05/31 PN, 'Acute subcapital left hip fracture s/p fall'
Please clarify the etiology of the left hip fracture:
Multifactorial, due to fall and osteoporosis
Due to fall only
Other, please specify
Use of terms such as suspected, likely, concern for, or probable (associated with a specific diagnosis that is being evaluated, monitored, or treated as if it exists) are acceptable and can be coded in the inpatient setting, when documented at the
time of discharge.
Thank you,
ZHANE Delarosa RN
CDI Specialist
available via tiger text
Please use your independent medical judgment in providing your response.
[2025-06-01] MEDS: PROTONIX 40 MG PO (10:23)
[2025-06-01] MEDS: ASPIRIN 325 MG PO (10:23)
[2025-06-01] MEDS: ZESTRIL PO (10:23)
[2025-06-01] MEDS: NORVASC 5 MG PO (10:31)
[2025-06-01] MEDS: TYLENOL 650 MG PO ×2 (10:40→23:20)
[2025-06-01] MEDS: LR 1000 IV (11:54)
--- NOTE | 2025-06-01 12:39 | W.PN.HOSP.TC ---
Today's Communication/Plan
-
Assessment / Plan
Assessment / Plan
NAD
Scleral Anicteric
MMM
No JVD
CTABL
RRR, S1/S2
Soft, NT, ND, BS+
Warm, Dry
Left leg rotated
AAOx3
Calm
Acute subcapital left hip fracture s/p fall, traumatic on osteoporsis
s/p OR tolerated well
pt/ot
asa per ortho for dvt ppx
incentive maryellen
ankle pumps
tighten buttock muscles
Guido, suspect prerenal etiology
IVF
Hold acei
Hypertension
Continue antihypertensive
Hyperlipidemia
Continue statin
GERD continue PPI
Vitamin B12 deficiency
Continue supplementation
[facility]
Anticipated Discharge: Within 24 hours
Subjective/Interval History
-
Date of Service: June 01, 2025
seen and examined
no new complaints
no acute overnight events
Objective Data
-
Labs:
Laboratory Results
06/01/25
06:30
WBC 9.5
Hgb 11.7 L
Hct 31.2 L
Plt Count 200
Sodium 136
Potassium 4.8
Chloride 103
Carbon Dioxide 22
BUN 42 H
Creatinine 1.5 H
Glucose 111 H
Calcium 9.0
Total Bilirubin 0.9
AST 29
ALT 17
Alkaline Phosphatase 105
Vital Signs:
Vital Signs
Temp Pulse Resp BP Pulse Ox
98.5 F 85 18 182/80 100
06/01/25 07:15 06/01/25 07:15 06/01/25 07:15 06/01/25 07:15 06/01/25 07:15
I&O
05/31/25 06/01/25 06/02/25
06:59 06:59 06:59
Intake Total 750 / 750 630 / 630
Output Total 53 / 53 350 / 350
Balance 697 / 697 280 / 280
[2025-06-01 15:26] VITALS: BP 179/69; PULSE 88
[2025-06-01 15:34] VITALS: BP 135/72
--- NOTE | 2025-06-01 15:36 | CM ---
Spoke with patient and Teresita dgt in room. PT and OT evals being done at this time.
Discuss Dc planning .
PAc data given to dgt .
If SNF indicated dgt would like [facility] or [facility]. CM will need to enter
PLAN Awaiting PT OT evals
[2025-06-01 16:02] VITALS: BP 179/69; PULSE 85; O2SAT 94
[2025-06-01] MEDS: SEROQUEL 12.5 MG PO (21:44)
[2025-06-01 23:57] VITALS: BP 129/66
[2025-06-02 06:38] LABS: ALT (SGPT) 13 U/L (0-35); AST (SGOT) 25 U/L (14-36); Albumin 3.4 g/dl (3.5-5.0); Alkaline Phosphatase 86 U/L (38-126); Blood Urea Nitrogen 37 mg/dl (7-17); Calcium 8.8 mg/dl (8.4-10.2); Carbon Dioxide 24 mmol/L (22-30); Chloride 108 mmol/L (98-107); Estimated Creatinine Clearance 25 ml/min; Glucose 93 mg/dl (70-99); Potassium 4.2 mmol/L (3.5-5.1); Sodium 135 mmol/L (135-145); Total Protein 5.6 g/dl (6.3-8.2); eGFR 48.33
[2025-06-02 06:47] LABS: Hematocrit 27.5 % (37.0-47.0); Hemoglobin 9.4 g/dL (12.0-16.0); Mean Corp Hgb Conc. 34.2 g/dL (33.0-37.0); Mean Corpuscular Volume 93.5 fL (81.0-99.0); Platelet Count 184 10^3/uL (130-400); Red Cell Dist. Width 15.3 % (11.5-14.5)
[2025-06-02 07:20] VITALS: BP 157/82
[2025-06-02 07:48] LABS: Nucleated Red Blood Cells % 0 %
--- NOTE | 2025-06-02 07:48 | W.PN.UPDATE ---
Update Note
Progress Note Update
Ms. Potter is POD2 following her left hip cannulated screw fixation for femoral neck fracture performed by Dr. Dover. She is resting comfortably in bed this morning and only endorses mild aching in the hip.
Directed exam of the left lower extremity reveals surgical dressing clean, dry and intact. Mild tenderness about the anterior hip. Thigh soft and compressible. Calf soft and nontender. Patient able to wiggle toes, plantar and dorsiflex ankle. NVID.
Hgb 9.4 this AM.
89 yo F POD2 left hip cannulated screw fixation by Dr. Dover
--Partial weight bearing with walker. We appreciate the assistance of PT/OT.
--Recommend ASA 325 mg daily x4 weeks for DVT ppx, otherwise per primary.
--Pain control prn. Ice and elevation for pain and edema control.
--Hgb 9.4 AM. Continue to monitor.
--Maintain surgical dressing until 7-10 days post-op. Staple removal at 2 weeks post-op.
--Case management consult for dc planning.
--Patient is stable post-operatively from an orthopedic standpoint. Orthopedics will sign off for now. Please reach out with any additional orthopedic questions or concerns.
[2025-06-02] MEDS: NORVASC 5 MG PO (09:24)
[2025-06-02] MEDS: TYLENOL 650 MG PO (09:24)
[2025-06-02] MEDS: PROTONIX 40 MG PO (09:24)
[2025-06-02] MEDS: ASPIRIN 325 MG PO (09:24)
[2025-06-02] MEDS: REFRESH EYE DROPS (PF) 1 DROPS BOTH EYES (09:25)
[2025-06-02 11:03] VITALS: BP 160/73; BP 185/69; PULSE 82; O2SAT 96
[2025-06-02 11:09] VITALS: BP 160/73; BP 185/69; PULSE 82; O2SAT 96
--- NOTE | 2025-06-02 13:06 | W.DCSUMMARY ---
Addendum entered and electronically signed by Noé Dickinson MD 06/03/25 14:35:
Anemia, multifactorial due to acute blood loss and hemodilution
Hemodynamically stable without evidence of acute bleding
Original Note:
Discharge Summary
Discharge Data
Date of Admission: 05/30/25
Date of Discharge: 06/02/25
-
Pending Results: No
Hospital Course
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 Positive head strike requiring sutures on the left lateral position over the eye. Imaging studies consistent with left hip
fracture. Was taken to the OR on 05/31/2025 with orthopedic surgery. Was evaluated by physical therapy recommended SNF. Per orthopedic surgery continue aspirin 325 mg daily x 4 weeks for DVT prophylaxis. Continue analgesics with Tylenol. Ice
and elevation for pain and edema control. Maintain surgical dressing until 7 to 10 days postop. Staple removal in 2 weeks postop. Will need continue outpatient follow up with PCP and Orthopedic
Thyroid nodule will need to see pcp for thyroid ultrasound
C-Spine and head CT
IMPRESSION:
1. No acute intracranial abnormality noted.
2. No acute fracture or subluxation of the cervical spine. Multilevel degenerative changes of the cervical spine.
3. Large right thyroid lobe nodule. Recommend outpatient workup with dedicated thyroid ultrasound if not previously performed.
Hip xray
IMPRESSION: Acute subcapital left hip fracture. New.
Moderate right hip osteoarthritis. Mild left hip osteoarthritis. Stable
Pelvis CT
IMPRESSION: Subcapital left hip fracture. New from 11/08/2023
Diverticulosis. Stable
Hip xray
FINDINGS/IMPRESSION:
Spot intraoperative fluoroscopic images are obtained during ongoing proximal left femur ORIF. Please see operative report for further details.
Seen and examined on the day of discharge 06/02
No new complaints. No acute overnight events
NAD
Scleral Anicteric
MMM
No JVD
CTABL
RRR, S1/S2
Soft, NT, ND, BS+
Warm, Dry
AAOx3
Calm
More than 30 minutes spent in discharge including
Final examination of the patient
Summarizing hospital stay
Instructions for continuing care to all relevant caregivers
Preparation of discharge records, prescriptions, and referral forms
Total time spent (in minutes): 33mins
Discharge Plan
-
Patient Disposition: Senior Living/SNF
Discharge Diagnosis/Procedures: Left hip fracture s/p repair
Condition: Good
Diet: As tolerated
Activity: As tolerated
Activity Restrictions/Additional Instructions:
Presented after a fall. Positive head strike requiring sutures on the left lateral position over the eye. Imaging studies consistent with left hip fracture. Was taken to the OR on 05/31/2025 with orthopedic surgery. Was evaluated by physical
therapy recommended SNF. Per orthopedic surgery continue aspirin 325 mg daily x 4 weeks for DVT prophylaxis. Continue analgesics with Tylenol. Ice and elevation for pain and edema control. Maintain surgical dressing until 7 to 10 days postop.
Staple removal in 2 weeks postop. Will need continue outpatient follow up with PCP and Orthopedic
Thyroid nodule will need to see pcp for thyroid ultrasound
C-Spine and head CT
IMPRESSION:
1. No acute intracranial abnormality noted.
2. No acute fracture or subluxation of the cervical spine. Multilevel degenerative changes of the cervical spine.
3. Large right thyroid lobe nodule. Recommend outpatient workup with dedicated thyroid ultrasound if not previously performed.
Hip xray
IMPRESSION: Acute subcapital left hip fracture. New.
Moderate right hip osteoarthritis. Mild left hip osteoarthritis. Stable
Pelvis CT
IMPRESSION: Subcapital left hip fracture. New from 11/08/2023
Diverticulosis. Stable
Hip xray
FINDINGS/IMPRESSION:
Spot intraoperative fluoroscopic images are obtained during ongoing proximal left femur ORIF. Please see operative report for further details.
Referrals:
Saji Ahumada PA-C [Family Provider, Emergency]
Judy Dover I., DO [Active, Orthopedics] - in two to three weeks
Prescriptions:
New
aspirin 325 mg Tablet
325 mg PO DAILY Qty: 30 0RF
quetiapine 25 mg Tablet
12.5 mg PO HS Qty: 15 0RF
acetaminophen 325 mg Tablet
650 mg PO Q4HPRN PRN (Reason: mild pain/ORONA/temp> 100.4F) Qty: 90 0RF
lisinopril 20 mg Tablet
40 mg PO DAILY Qty: 30 0RF
rosuvastatin 10 mg Tablet
10 mg PO QPM Qty: 30 0RF
Continued
omeprazole 40 MG capsule,delayed release(DR/EC)
40 mg PO DAILY
Gemtesa 75 mg Tablet
75 mg PO DAILY
loperamide 2 mg Tablet
2 mg PO DAILYPRN PRN (Reason: DIARRHEA)
therapeutic multivitamin Tablet
1 tab PO DAILY
amlodipine [Norvasc] 5 mg Tablet
5 mg PO DAILY
vitamin B complex Tablet
1 tab PO DAILY
calcium citrate 200 mg (950 mg) Tablet
200 mg PO DAILY
cholecalciferol (vitamin D3) [Vitamin D3] 25 mcg (1,000 unit) Tablet
25 mcg PO DAILY
lisinopril 20 mg tablet
20 mg PO DAILY
Systane (PF) 0.4-0.3 % Dropperette
1 drp OPHTHALMIC (EYE) DAILY
Discontinued
acetaminophen [Tylenol] 325 mg Tablet
650 mg PO HS
Discharge Orders:
Discharge Patient (As Directed); Ordered 06/02/25
Ordered By: Noé Dickinson
Discharge Date and Time
Print Language: SOMALI
[2025-06-02 15:30] VITALS: BP 140/72
--- NOTE | 2025-06-02 15:52 | CM ---
RICO met with Lexi and her daughter earlier today to discuss transfer to SNF. [facility] was the requested facility. Referral sent to [facility] and patient accepted for admission.
SNF authorization provided by Luisa for 6 days. Auth #[id number].
Ambulance transport requested for transfer to [facility].
[facility] report: [phone]
[facility]
--- NOTE | 2025-06-02 16:07 | PN.CDI ---
CDI
- -
CDI:
Physician Documentation Request
Admit Date: 05/30/25 14:59
Dear Doctor Alok,
Clinical Indicators:
Patient admitted with acute subcapital left hip fracture; s/p left hip cannulated screw fixation 05/31.
IVF: Intraoperative- 500 ml 06/01 LR @ 60 ml/hr
06/01 PT note, 'The patient required extended time for all mobility and limited due to pain and weakness'
Hgb/Hct trend:
05/30/25 05/31/25 06/01/25
09:21 06:16 06:30
Hgb 13.4 11.0 L 11.7 L
Hct 36.2 L 29.7 L 31.2 L
06/02/25
05:38
Hgb 9.4 L
Hct 27.5 L
Based on the above, could you clarify in the progress notes, the appropriate diagnosis, if significant, that supports the above abnormalities and additional evaluation, monitoring and/or treatment rendered:
Anemia, multifactorial due to acute blood loss and hemodilution
Anemia due to hemodilution only
Other, please specify
Use of terms such as suspected, likely, concern for, or probable (associated with a specific diagnosis that is being evaluated, monitored, or treated as if it exists) are acceptable and can be coded in the inpatient setting, when documented at the
time of discharge.
Thank you,
ZHANE Delarosa RN
CDI Specialist
available via tiger text
Please use your independent medical judgment in providing your response.
== END 2025-06-02 18:23 | DRG 481 ==
LOC: 2 SOUTH 14:59
PROVIDERS: Clinical Nurse Specialist Family Health; ADMITTING PHYSICIAN Internal Medicine; ATTENDING PHYSICIAN Hospitalist; CONSULT PHYSICIAN Orthopaedic Surgery; EMERGENCY PHYSICIAN Student in an Organized Health Care Education/Training Program; FAMILY PHYSICIAN Physician Assistant Medical
PROC: 0QH704Z Insertion of Internal Fixation Device into Left Upper Femur, Open Approach (ICD-10-PCS; 2025-05-31)
DX: M80.052A Age-related osteoporosis with current pathological fracture, left femur, initial encounter for fracture (principal); I51.81 Takotsubo syndrome; W19.XXXA Unspecified fall, initial encounter; I10 Essential (primary) hypertension; K21.9 Gastro-esophageal reflux disease without esophagitis; E53.9 Vitamin B deficiency, unspecified; E78.00 Pure hypercholesterolemia, unspecified; E04.1 Nontoxic single thyroid nodule; M16.0 Bilateral primary osteoarthritis of hip; M47.812 Spondylosis without myelopathy or radiculopathy, cervical region; I25.10 Atherosclerotic heart disease of native coronary artery without angina pectoris; I25.2 Old myocardial infarction; M51.369 Other intervertebral disc degeneration, lumbar region without mention of lumbar back pain or lower extremity pain; Z90.710 Acquired absence of both cervix and uterus; Z79.899 Other long term (current) drug therapy
CPT/HCPCS: 70450; 72125; 72192; 73502; 73523; 76000; 80053; 82550; 83735; 84484; 85025; 86850; 86900; 86901; 93005; 96374; 97116; 97163; 97167; 97530; 97535; 99285; C1713; C1769